=== PATIENT | female | born 1990 | race Caucasian/White ===

== ENCOUNTER 2017-12-31 09:00 | Outpatient (RCR) | payer MEDICARE, MEDICAID ==
[~2017-12-31 09:00] MED LIST: AMLO-111 PO; AZAT50TA44 PO; MELA5TAB6 PO; METO-734 PO; OMEP40CA48 PO; ONDA4TAB97 PO; SEVE800T16 PO; TOPI-121 PO
[2017-12-31 09:26] LABS: PLATELET COUNT, AUTOMATED 382 K/uL (150-450)
[2017-12-31] MEDS ORDERED: diphenhydrAMINE 25 MG CAP PO PRN (09:35)
[2017-12-31] MEDS ORDERED: ONDANSETRON 4 MG TAB PO PRN (09:40)
[2017-12-31] MEDS ORDERED: ACETAMINOPHEN 325 MG TAB PO PRN (09:40)
[2017-12-31] MEDS ORDERED: methylPREDNIS SUCC 125 MG/2ML IVP PRN (09:40)
[2017-12-31 10:16] VITALS: BP 121/100
[2017-12-31] MEDS ORDERED: NS 0.9% IV ONE (11:00)
[2017-12-31] MEDS ORDERED: RITUXIMAB IV ONE (11:00)
[2017-12-31 15:39] VITALS: BP 128/91
[2018-01-02] MEDS ORDERED: ALB0.5 IH (14:13)
== END 2018-02-06 09:34 | disposition home or self-care (01) ==
LOC: SPU 09:00
PROVIDERS: ATTEND Internal Medicine Rheumatology
DX: N18.6 End stage renal disease (principal); Z99.2 Dependence on renal dialysis
CPT/HCPCS: 85025; 96375; 96413; 96415; A9270; J2930; J7050; J9310; Q0162; Q0163; 82040; 82247; 82310; 82374; 82435; 82565; 82947; 84075; 84132; 84155; 84295; 84450; 84460; 84520; S0119

== ENCOUNTER → 2018-01-02 | Outpatient (CLI) | payer MEDICARE, MEDICAID ==
[~2018-01-02] MED LIST changes: +ALB0.5 IH; -AMLO-111 PO; +AMLO-96 PO
--- NOTE | 2018-01-02 15:10 | RADIOLOGY IMAGING REPORT ---
[place] [facility] [place] NAME: Celina Ramos : 1990 MR: [id number] V: [id number] EXAM DATE: ORDERING PHYSICIAN: SANDY ART TECHNOLOGIST: Location: [facility] - [place] Patient: Celina Ramos : 1990 Visit/Account:[id number] Date of Sevice: 01/02/2018 Chest with lateral, 2 views. HISTORY: Cough for one year. COMPARISON: None. Minimal streaky densities are present in the right lung base. The heart and mediastinum are unremarka ble. Pulmonary vessels are unremarkable. The lungs are otherwise clear. The pleural surfaces are un remarkable. No pneumothorax. A mild pectus excavatum is present. Small lucencies are present inferior to the right and left hemidiaphragm possibly representing gas within bowel loops. IMPRESSION: Mild right basilar subsegmental atelectasis or pleural-parenchymal scars. Lucencies in the upper abdomen possibly representing gas within bowel loops. A small pneumoperitoneum is not excluded. Clinical correlation is suggested. The patient's provider has been paged by the Imaging Physical Security Engineer at 3:15 PM on 01/02/2018. Report Dictated By: Vel Frey MD at 01/02/2018 3:02 PM Report E-Signed By: Vel Frey MD at 01/02/2018 3:06 PM WSN:[id number]
== END ==
LOC: LAB 14:11
PROVIDERS: ATTEND Emergency Medicine
DX: J98.11 Atelectasis (principal); Q67.6 Pectus excavatum
CPT/HCPCS: 36415; 71046; 83880; 85379

== ENCOUNTER → 2018-01-03 | Outpatient (CLI) | payer MEDICARE, MEDICAID ==
--- NOTE | 2018-01-03 14:41 | RADIOLOGY IMAGING REPORT ---
FACILITY: [facility] - [place] PATIENT NAME: Celina Ramos : 1990 MR: [id number] V: [id number] EXAM DATE: ORDERING PHYSICIAN: SANDY ART TECHNOLOGIST: Location: [facility] [place] Patient: Celina Ramos : 1990 Visit/Account:[id number] Date of Sevice: 01/03/2018 DEXA Scan HISTORY: History of recent steroid use. COMPARISON: None. LUMBAR SPINE: The bone mineral density (BMD) measured from L1-L4 correlates with a Z-score of -0.3 and a T-score of +0.1 which is normal as defined by the World Health Organization. The corresponding risk of fractur e in the lumbar spine is not increased compared with a young adult reference population. HIP: Bone mineral density (BMD) measured in the left total hip region correlates with a Z-score of -2.2 an d a T-score of -1.9 which is compatible with osteopenia as defined by the World Health Organization. The corresponding risk of fracture in the hip is increased 3-4 times compared with a young adult ref erence population. Bone mineral density (BMD) measured in the left Femoral Neck region measures 0.864 g/cm2. IMPRESSION: 1. Lumbar spine: Normal. 2. Left Total Hip: Compatible with osteopenia. 3. Left Femoral Neck: Bone Mineral Density is 0.864 g/cm2 The next DEXA scan of this patient should include the following sites: L1-L4 and left hip. FRAX? WHO Fracture Risk Assessment Tool link: <http://www.shef.ac.uk/FRAX/tool.jsp?locationValue=9> PLEASE NOTE: 1) The World Health Organization defines low BMD as follows: T-score Normal > -1 Osteopenia < -1 and > -2.5 Osteoporosis < -2.5 without fractures Established osteoporosis < -2.5 with fractures 2) In general, you may wish to consider: Diagnosis Treatment Follow-up DEXA Normal BMD Prevention 2-3 years Osteopenia Prevention/therapy 1-2 years Osteoporosis Therapy Yearly 3) Fracture risk estimated from the T-score is more accurate for vertebral fractures (often spontane ous) than for hip fractures. Report Dictated By: Harika Ramos MD at 01/03/2018 2:36 PM Report E-Signed By: Harika Ramos MD at 01/03/2018 2:37 PM WSN:[email or web address]
== END ==
LOC: RAD 13:47
PROVIDERS: ATTEND Emergency Medicine
DX: M85.88 Other specified disorders of bone density and structure, other site (principal)
CPT/HCPCS: 77080

== ENCOUNTER → 2018-01-08 | Outpatient (CLI) | payer MEDICARE, MEDICAID | LOC: RESP 02:48 | PROVIDERS: ATTEND Emergency Medicine | DX: R05 Cough (principal); R09.02 Hypoxemia | CPT/HCPCS: 94060; 94726; 94729 ==

== ENCOUNTER → 2018-03-05 | Outpatient (CLI) | payer MEDICARE, MEDICAID ==
[~2018-03-05] MED LIST changes: +AMLO-111 PO; +AMLO-113 PO; -AMLO-96 PO
--- NOTE | 2018-03-05 20:22 | RADIOLOGY IMAGING REPORT ---
FACILITY: [facility] - [place] PATIENT NAME: Celina Ramos : 1990 MR: [id number] V: [id number] EXAM DATE: [id number] ORDERING PHYSICIAN: IZABELLA MYERS TECHNOLOGIST: Location: [facility] Patient: Celina Ramos : 1990 Visit/Account:[id number] Date of Sevice: 03/05/2018 EXAMINATION: Chest 2 Views HISTORY: Chest pain. Cough for one year. COMPARISON: 01/02/2018. FINDINGS: The lungs are clear. No focal consolidation or pleural effusion. No pneumothorax. Normal cardiomediastinal silhouette, with normal heart size and pulmonary vascularity. There is a small amount of free intraperitoneal air under the bilateral hemidiaphragms, similar to th e prior exam. Patient is reportedly on peritoneal dialysis. No acute osseous findings. Visualized osseous structures appear intact. Mild pectus excavatum. IMPRESSION: 1. No acute findings in the chest. The lungs are clear. 2. Small amount of free intraperitoneal air under the diaphragm, similar to the prior exam. The patie nt is on peritoneal dialysis. Findings were discussed with IZABELLA MYERS at 03/05/2018 8:16 PM. Report Dictated By: Pravin Ortega MD at 03/05/2018 7:22 PM Report E-Signed By: Pravin Ortega MD at 03/05/2018 8:18 PM WSN:[id number]
== END ==
LOC: RAD 16:17
PROVIDERS: ATTEND Internal Medicine Critical Care Medicine
DX: R07.9 Chest pain, unspecified (principal)
CPT/HCPCS: 71046

== ENCOUNTER → 2018-03-22 | Outpatient (CLI) | payer MEDICARE, MEDICAID ==
[2018-03-22 13:19] LABS: PLATELET COUNT, AUTOMATED 294 K/uL (150-450)
== END ==
LOC: LAB 13:02
PROVIDERS: ATTEND Emergency Medicine
DX: J18.9 Pneumonia, unspecified organism (principal)
CPT/HCPCS: 36415; 85025; 86140

== ENCOUNTER 2018-03-29 10:00 | Outpatient (RCR) | payer MEDICARE, MEDICAID ==
[2018-03-22 13:42] VITALS: BP 140/100
[2018-03-22] MEDS: NS 0.9% IVPB PRN (13:52)
[2018-03-22] MEDS: ERTAPENEM IVPB PRN (13:52)
[2018-03-23] MEDS: ERTAPENEM IVPB PRN (10:28)
[2018-03-23] MEDS: NS 0.9% IVPB PRN (10:28)
[2018-03-23] MEDS: NS(*) 0.9% 100 ML BAG 100 ML IVPB PRN (10:28)
[2018-03-23] MEDS: LIDOCAINE/SOD BICARB 8.4% SYR ID PRN (10:29)
[2018-03-23 10:32] VITALS: BP 119/90
[2018-03-24] MEDS: ERTAPENEM IVPB PRN (10:15)
[2018-03-24] MEDS: NS 0.9% IVPB PRN (10:15)
[2018-03-24 10:16] VITALS: BP 129/100
[2018-03-25 10:58] VITALS: BP 118/93
[2018-03-25] MEDS: ERTAPENEM IVPB PRN (11:05)
[2018-03-25] MEDS: LIDOCAINE/SOD BICARB 8.4% SYR ID PRN (11:05)
[2018-03-25] MEDS: NS 0.9% IVPB PRN (11:05)
[2018-03-26] MEDS: NS(*) 0.9% 100 ML BAG 100 ML IVPB PRN (10:39)
[2018-03-26 10:40] VITALS: BP 123/87
[2018-03-26] MEDS: NS 0.9% IVPB PRN (10:55)
[2018-03-26] MEDS: ERTAPENEM IVPB PRN (10:55)
[2018-03-27 09:49] VITALS: BP 123/90
[2018-03-27] MEDS: NS 0.9% IVPB PRN (10:00)
[2018-03-27] MEDS: ERTAPENEM IVPB PRN (10:00)
[2018-03-28 09:57] VITALS: BP 134/110
[2018-03-28] MEDS: ERTAPENEM IVPB PRN (10:19)
[2018-03-28] MEDS: NS 0.9% IVPB PRN (10:19)
[2018-03-28] MEDS: NS(*) 0.9% 100 ML BAG 100 ML IVPB PRN (10:20)
[~2018-03-29 10:00] MED LIST changes: +DEXTROSE 5%(*) 100 ML BAG 100 ML IVPB PRN; +ERTAPENEM(*) 1 GM VIAL 1 GM in NS(*) 0.9% 100 ML ADDVANT BAG 100 ML IVPB PRN
[2018-03-29] MEDS: ERTAPENEM IVPB PRN (10:11)
[2018-03-29] MEDS: NS 0.9% IVPB PRN (10:11)
[2018-03-29] MEDS: NS(*) 0.9% 100 ML BAG 100 ML IVPB PRN (10:11)
[2018-03-29 10:14] VITALS: BP 112/98
[2018-03-30] MEDS: ERTAPENEM IVPB PRN (09:40)
[2018-03-30] MEDS: NS 0.9% IVPB PRN (09:40)
[2018-03-30] MEDS: NS(*) 0.9% 100 ML BAG 100 ML IVPB PRN (09:44)
[2018-03-30 09:51] VITALS: BP 125/99
[2018-03-31] MEDS: ERTAPENEM IVPB PRN (09:41)
[2018-03-31] MEDS: NS(*) 0.9% 100 ML BAG 100 ML IVPB PRN (09:41)
[2018-03-31] MEDS: NS 0.9% IVPB PRN (09:41)
[2018-03-31 09:43] VITALS: BP 117/95
[2018-04-08] MEDS ORDERED: PRED20TA6 PO (16:24)
[2018-04-08] MEDS ORDERED: IPRA4AER IH (16:24)
[2018-04-08] MEDS ORDERED: AMOX-559 PO (16:41)
== END 2018-04-10 12:12 | disposition home or self-care (01) ==
LOC: SPU 10:00
PROVIDERS: ATTEND Emergency Medicine
DX: J18.9 Pneumonia, unspecified organism (principal)
CPT/HCPCS: 36415; 85025; 86140; 96365; J1335; J7050

== ENCOUNTER → 2018-04-02 | Outpatient (CLI) | payer MEDICARE, MEDICAID ==
[~2018-04-02] MED LIST changes: -DEXTROSE 5%(*) 100 ML BAG 100 ML IVPB PRN; -ERTAPENEM(*) 1 GM VIAL 1 GM in NS(*) 0.9% 100 ML ADDVANT BAG 100 ML IVPB PRN
== END ==
LOC: LAB 17:03
PROVIDERS: ATTEND Emergency Medicine
DX: J18.9 Pneumonia, unspecified organism (principal)
CPT/HCPCS: 36415; 86140

== ENCOUNTER → 2018-04-08 | Outpatient (CLI) | payer MEDICARE, MEDICAID ==
[~2018-04-08] MED LIST changes: +AMOX-559 PO; +IPRA4AER IH; +PRED20TA6 PO
--- NOTE | 2018-04-08 17:48 | RADIOLOGY IMAGING REPORT ---
FACILITY: [facility] - [place] PATIENT NAME: Celina Ramos : 1990 MR: [id number] V: [id number] EXAM DATE: ORDERING PHYSICIAN: SANDY ART TECHNOLOGIST: Location: [facility] - [place] Patient: Celina Ramos : 1990 Visit/Account:[id number] Date of Sevice: 04/08/2018 Exam type: CHEST PA AND LAT History: Pneumonia follow up. ( X ray done out of town on 03/21) Comparison: March 05, 2018. Findings: The lungs appear free of acute effusions, infiltrates or edema. Cardiac silhouette is normal in size . Small amount of free intra- peritoneal air is noted similar to the prior study. By history the pa tient is on peroneal dialysis. There Appears to be a pectus excavatum deformity the anterior chest w all IMPRESSION: 1. No acute cardiopulmonary process seen Report Dictated By: Trista Jon MD at 04/08/2018 5:42 PM Report E-Signed By: Trista Jon MD at 04/08/2018 5:44 PM WSN:[email or web address]
== END ==
LOC: RAD 16:48
PROVIDERS: ATTEND Emergency Medicine
DX: J18.9 Pneumonia, unspecified organism (principal)
CPT/HCPCS: 71046

== ENCOUNTER → 2018-05-20 | Outpatient (CLI) | payer MEDICARE, MEDICAID | LOC: LAB 10:21 | PROVIDERS: ATTEND Emergency Medicine | DX: J40 Bronchitis, not specified as acute or chronic (principal); B34.9 Viral infection, unspecified | CPT/HCPCS: 87633 ==

== ENCOUNTER 2018-06-10 12:16 | Outpatient (RCR) | payer MEDICARE, MEDICAID ==
[~2018-06-10 12:16] MED LIST changes: -AMLO-111 PO; -AMLO-113 PO; +AMLO-125 PO; +AMLO-127 PO
[2018-06-12 08:28] VITALS: BP 127/90
[2018-06-12 09:02] LABS: PLATELET COUNT, AUTOMATED 312 K/uL (150-450)
[2018-06-12] MEDS ORDERED: methylPREDNIS SUCC 125 MG/2ML IVP PRN (09:15)
[2018-06-12] MEDS ORDERED: ONDANSETRON 4 MG TAB PO PRN (09:15)
[2018-06-12] MEDS ORDERED: diphenhydrAMINE 50 MG/ML VIAL IVP PRN (09:15)
[2018-06-12] MEDS ORDERED: ACETAMINOPHEN 325 MG TAB PO PRN (09:15)
[2018-06-12] MEDS ORDERED: RITUXIMAB IV ONE (10:00)
[2018-06-12] MEDS ORDERED: NS 0.9% IV ONE (10:00)
[2018-06-12] MEDS ORDERED: ALTEPLASE RECOMB 2 MG VIAL IVP PRN (11:00)
[2018-06-12] MEDS ORDERED: WATER FOR INJ,STERILE 20 ML IVP PRN (11:00)
[2018-06-12] MEDS ORDERED: DEXTROSE 5%(*) 100 ML BAG 100 ML IVPB PRN (11:00)
[2018-06-12] MEDS ORDERED: NS(*) 0.9% 100 ML BAG 100 ML IVPB PRN (11:00)
[2018-06-12] MEDS ORDERED: NS(*) 0.9% 500 ML BAG 500 ML IV PRN (11:00)
[2018-06-12 12:07] VITALS: BP 117/88
[2018-06-28] MEDS ORDERED: AZIT-1 PO (03:58)
== END 2018-07-01 12:19 | disposition home or self-care (01) ==
LOC: SPU 12:16
PROVIDERS: ATTEND Internal Medicine Rheumatology
DX: M31.7 Microscopic polyangiitis (principal)
CPT/HCPCS: 85025; 96375; 96413; 96415; A9270; J1200; J2930; J7040; J7050; J9312; Q0162; 82040; 82247; 82310; 82374; 82435; 82565; 82947; 84075; 84132; 84155; 84295; 84450; 84460; 84520; S0119

== ENCOUNTER 2018-06-10 15:21 | Outpatient (RCR) | payer MEDICARE, MEDICAID ==
[2018-06-28] MEDS ORDERED: AZIT-1 PO (03:58)
== END 2018-07-01 12:19 | disposition home or self-care (01) ==
LOC: SPU 15:21
PROVIDERS: ATTEND Internal Medicine Rheumatology
DX: N18.6 End stage renal disease (principal); Z99.2 Dependence on renal dialysis

== ENCOUNTER 2018-06-16 16:10 | Emergency (ER) | payer MEDICARE, MEDICAID ==
[2018-06-16] MEDS ORDERED: NS(*) 0.9% 1000 ML BAG 1,000 ML IV ONE (16:20)
[2018-06-16] MEDS ORDERED: PROMETHAZINE 25 MG/ML 1 ML AMP IVP ONE (16:20)
[2018-06-16] MEDS ORDERED: diphenhydrAMINE 50 MG/ML VIAL IVP ONE ×5 (16:20→22:20)
[2018-06-16] MEDS ORDERED: HYDROMORPHONE HCL 1 MG/ML SYRINGE IVP ONE ×4 (16:20→22:20)
--- NOTE | 2018-06-16 16:23 | ER Report ---
History and Physical Time Seen By MD: 16:22 Hx. of Stated Complaint: N/V/D, ABD PAIN (GE CRESPO DO) HPI/ROS CHIEF COMPLAINT: n/v/d with abd pain HISTORY OF PRESENT ILLNESS: PT started last night with vomiting and diarrhea. Pt took phenergan which seemed to help. Woke up at 10 am and felt okay but slowly a round noon symptoms returned. +n/v/d with severe abdominal cramping. PT is on peritoneal dialysis for the last 7 years. PT states her dialysis went as usual; fluid was clear. N0 fevers. No sick contacts. Pt has hx of colitis in the past. Pt using heating pad on her abdomen which is helping her cramping. Pt states that she tried zofran this am but did not help. Pt states when she has this type of pain she needs dilaudid but she needs benadryl and ativan with it. REVIEW OF SYSTEMS: Constitutional: No fever, no chills. Eyes: No discharge. ENT: No sore throat. Cardiovascular: No chest pain, no palpitations. Respiratory: No cough, no shortness of breath. Gastrointestinal: +abdominal pain, +nausea, + vomiting, + diarrhea Genitourinary: No hematuria. Musculoskeletal: No back pain. Skin: No rashes. Neurological: No headache. (GE CRESPO DO) Allergies: Coded Allergies: fentanyl (Unverified Allergy, Severe, SEIZURES, 06/16/18) vancomycin (Unverified Allergy, Unknown, ORAL SWELLING, 06/16/18) levofloxacin (Verified Adverse Reaction, Intermediate, Severe arthralgia, 06/16/18) meperidine (Unverified Adverse Reaction, Unknown, HALLUCINATIONS, 06/16/18) morphine (Unverified Adverse Reaction, Unknown, ITCHING, 06/16/18) Home Meds Reported Medications Ipratropium/Albuterol Sulfate (COMBIVENT RESPIMAT INHAL SPRAY) 4 Gm Aer.w.adap, 1 EACH IH QID Use prior to exertion 04/08/18 Topiramate (TOPAMAX) 100 Mg Tablet, 1.5 TAB PO BID 12/28/17 Ondansetron Hcl (ZOFRAN) 4 Mg Tablet, 2 TAB PO PRN, TAB 12/28/17 Melatonin (MELATONIN) 5 Mg Tablet, 1 TAB PO QHS 12/28/17 Sevelamer Carbonate (RENVELA) 800 Mg Tablet, 1 TAB PO WITH MEALS 12/28/17 Omeprazole (OMEPRAZOLE) 40 Mg Capsule.dr, 1 CAP PO BID, CAP 12/28/17 Azathioprine (IMURAN) 50 Mg Tablet, 3 TAB PO QDAY 12/28/17 Past Medical/Surgical History pmhx: htn, pericarditis, gerd, pneumonia, gastroparesis, colitis, autoimmune ds, ovarian cyst 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, bunionectomy, sinus surgery (GE CRESPO DO) Reviewed Nurses Notes: Yes Old Medical Records Reviewed: Yes (GE CRESPO DO) Hx Smoking: No Smoking Status: Never Smoker (GE CRESPO DO) Constitutional Vital Sign - Last 24 Hours 06/16/18 06/16/18 06/16/18 06/16/18 16:14 18:30 19:00 19:05 Temp 97.6 Pulse 106 90 86 Resp 20 B/P (MAP) 117/88 122/91 (101) 127/87 (100) Pulse Ox 94 97 97 98 O2 Delivery Room Air 06/16/18 06/16/18 06/16/18 06/16/18 19:35 20:05 20:30 20:35 Pulse 99 96 93 B/P (MAP) 115/83 (94) Pulse Ox 100 85 98 (FOUZIA CISNEROS MD) Physical Exam General Appearance: The patient is alert, has no immediate need for airway protection and no signs of toxicity. Eyes: Pupils equal and round no pallor or injection ENT: no pharyngeal erythema or exudates, Mucous membranes are moist Respiratory: There are no retractions, lungs are clear to auscultation. Cardiovascular: Regular rate and rhythm. pulses are equal and symmetrical Gastrointestinal: Abdomen is soft but diffsely tender, no masses, bowel sounds normal, + guarding, no rigidity or rebound Neurological: Cranial nerves II-XII grossly intact, no sensory or motor loss Skin: Warm and dry, no rashes. Musculoskeletal: Neck is supple non tender, no vertebral tenderness Extremities are non tender, nonswollen and have full range of motion. DIFFERENTIAL DIAGNOSIS: After history and physical exam differential diagnosis was considered for colitis, psbo, sbo, peritonitis, (GE CRESPO DO) Medical Decision Making Data Points Result Diagram: 06/16/18201506/16/18 1625 Laboratory Hematology Test 06/16/18 15:25 06/16/18 16:25 06/16/18 18:00 06/16/18 20:16 Phosphorus Level 3.4 mg/dl (2.5-4.5) Magnesium Level 1.2 mg/dl (1.7-2.2) Sodium Level 134 mmol/L (137-145) Potassium Level 4.0 mmol/L (3.5-5.0) Chloride Level 95 mmol/L (98-107) Carbon Dioxide Level 30 mmol/L (22-31) Blood Urea Nitrogen 40 mg/dl (7-18) Creatinine 11.10 mg/dl (0.52-1.04) Glomerular Filtration Rate Calc 4.1 Random Glucose 96 mg/dl (75-110) Calcium Level 8.6 mg/dl (8.4-10.2) Total Bilirubin 0.6 mg/dl (0.2-1.3) Aspartate Amino Transf (AST/SGOT) 11 U/L (0-35) Alanine Aminotransferase (ALT/SGPT) 10 U/L (0-56) Alkaline Phosphatase 52 U/L (0-126) Total Protein 6.1 g/dl (6.3-8.2) Albumin 3.4 g/dl (3.5-5.0) Lipase 143 U/L (23-300) Human Chorionic Gonadotropin, Qual Negative (NEGATIVE) Red Blood Count 2.37 M/uL (4.17-5.56) Mean Corpuscular Volume 92.7 fL (80.0-96.0) Mean Corpuscular Hemoglobin 31.8 pg (26.0-33.0) Mean Corpuscular Hemoglobin Concent 34.4 g/dL (32.0-36.0) Red Cell Distribution Width 19.3 % (11.5-14.5) Mean Platelet Volume 7.8 fL (7.2-11.1) Neutrophils (%) (Auto) 81.7 % (39.4-72.5) Lymphocytes (%) (Auto) 6.6 % (17.6-49.6) Monocytes (%) (Auto) 10.4 % (4.1-12.4) Eosinophils (%) (Auto) 0.5 % (0.4-6.7) Basophils (%) (Auto) 0.8 % (0.3-1.4) Nucleated RBC Relative Count (auto) 0.1 /100WBC Neutrophils # (Auto) 4.2 K/uL (2.0-7.4) Lymphocytes # (Auto) 0.3 K/uL (1.3-3.6) Monocytes # (Auto) 0.5 K/uL (0.3-1.0) Eosinophils # (Auto) 0.0 K/uL (0.0-0.5) Basophils # (Auto) 0.0 K/uL (0.0-0.1) Nucleated RBC Absolute Count (auto) 0.00 K/uL Peripheral Blood Smear Yes Y/N Chemistry Test 06/16/18 15:25 06/16/18 16:25 06/16/18 18:00 06/16/18 20:16 Phosphorus Level 3.4 mg/dl (2.5-4.5) Magnesium Level 1.2 mg/dl (1.7-2.2) Glomerular Filtration Rate Calc 4.1 Calcium Level 8.6 mg/dl (8.4-10.2) Total Bilirubin 0.6 mg/dl (0.2-1.3) Aspartate Amino Transf (AST/SGOT) 11 U/L (0-35) Alanine Aminotransferase (ALT/SGPT) 10 U/L (0-56) Alkaline Phosphatase 52 U/L (0-126) Total Protein 6.1 g/dl (6.3-8.2) Albumin 3.4 g/dl (3.5-5.0) Lipase 143 U/L (23-300) Human Chorionic Gonadotropin, Qual Negative (NEGATIVE) White Blood Count 5.2 k/uL (4.5-11.0) Red Blood Count 2.37 M/uL (4.17-5.56) Hemoglobin 7.5 g/dL (12.0-16.0) Hematocrit 22.0 % (34.0-47.0) Mean Corpuscular Volume 92.7 fL (80.0-96.0) Mean Corpuscular Hemoglobin 31.8 pg (26.0-33.0) Mean Corpuscular Hemoglobin Concent 34.4 g/dL (32.0-36.0) Red Cell Distribution Width 19.3 % (11.5-14.5) Platelet Count 316 K/uL (150-450) Mean Platelet Volume 7.8 fL (7.2-11.1) Neutrophils (%) (Auto) 81.7 % (39.4-72.5) Lymphocytes (%) (Auto) 6.6 % (17.6-49.6) Monocytes (%) (Auto) 10.4 % (4.1-12.4) Eosinophils (%) (Auto) 0.5 % (0.4-6.7) Basophils (%) (Auto) 0.8 % (0.3-1.4) Nucleated RBC Relative Count (auto) 0.1 /100WBC Neutrophils # (Auto) 4.2 K/uL (2.0-7.4) Lymphocytes # (Auto) 0.3 K/uL (1.3-3.6) Monocytes # (Auto) 0.5 K/uL (0.3-1.0) Eosinophils # (Auto) 0.0 K/uL (0.0-0.5) Basophils # (Auto) 0.0 K/uL (0.0-0.1) Nucleated RBC Absolute Count (auto) 0.00 K/uL Peripheral Blood Smear Yes Y/N (FOUZIA CISNEROS MD) Microbiology Microbiology Date/Time Source Procedure Growth Status 06/16/18 19:08 Peritoneal Fluid Gram Stain - Final Resulted 06/16/18 19:08 Peritoneal Fluid Body Fluid Culture Pending Resulted 06/16/18 18:00 Cervical Wet Prep - Final Complete (FOUZIA CISNEROS MD) EKG/Imaging Monitor Interpretation: Normal Sinus Rhythm Imaging 12 lead EKG: Rhythm: normal sinus rhythm [place]: normal QRS: normal ST segments: normal QTC 462; prolonged QT, low voltage (FOUZIA CISNEROS MD) ED Course/Re-evaluation Clinical Indication for ER IV: IV Access ED Course will check labs. Will start with benadryl, dilaudid and phenergan. Pt requesting ativan at the same time however I am concerned with sedation so will monitor and then add if needed. 06/16/2018 5:21:35 pm Pts labs are back and similar to prior labs taken on 06/12/2018 with her infusion. Pt reevaluated states the abd pain has localized to below the belly button to pelvis region. awaiting ct results. 06/16/2018 5:49:[address] limited due to pts peritoneal fluid and lack of contrast. Reviewed results with pt who feels that she had an ovarian cyst in the past with similar symptoms. Spoke with radioloigst, Dr. Villeda, who staes the umbilical hernia fluid and air is peritoneal fluid and not bowel. Pt would like US when discussed the CT report. Pt has had no vomiting or stools in the ED PELVIC: No cmt, + left and R adnexal tenderness; +mild white discharge. wet prep and gc/chlamydia cultures obtained and sent to lab. (GE CRESPO DO) ED Course I took over care of patient from Dr. Crespo; pelvic ultrasound and peritoneal cultures pending. On my evaluation patient again develops worsening pain that is pelvic and bilateral and of note was significant worse in the area of the hemorrhagic cyst that is found on pelvic ultrasound. I will continue to try to control pain reassess CBC to evaluate for ongoing bleeding from the hemorrhagic cyst and reevaluate. Rpt cbc shows minimal drop; unable to control pain; maximum ttp found both suprapubic and periumbilical though without incarcerated hernia (ct demonstrates umbilical hernia defect). I considered ongoing hemorrhage from ovarian cyst; at this point, pt remains hd stable and given rpt cbc I doubt this is the case; though recommend continued serial exams to r/o progressing findings. I administered 500mg flagyl for BV as found. Considered peritonitis though pt states dialysate was clear and nl this am; peritoneal gm stain/cx pending at [facility]; will fax when resuled. Decision to Disposition Date: Jun 16, 2018 Decision to Disposition Time: 21:10 (FOUZIA CISNEROS MD) Depart Departure Latest Vital Signs Vital Signs Date Time Temp Pulse Resp B/P (MAP) Pulse Ox O2 Delivery O2 Flow Rate FiO2 06/16/18 20:35 93 98 06/16/18 20:30 115/83 (94) 06/16/18 16:14 97.6 20 Room Air (FOUZIA CISNEROS MD) Impression: Primary Impression: Hemorrhagic ovarian cyst Additional Impressions: Intractable abdominal pain Bacterial vaginosis Condition: Condition Unchanged Disposition: XFER TO [facility] ([facility]) Referrals: SANDY ART MD (PCP) 5 Days Problem Qualifiers GE CRESPO DO Jun 16, 2018 16:23 FOUZIA CISNEROS MD Jun 16, 2018 20:07
[2018-06-16 16:31] LABS: PLATELET COUNT, AUTOMATED 343 K/uL (150-450)
[2018-06-16] MEDS ORDERED: LORazepam 2 MG/ML VIAL IVP ONE ×3 (16:50→22:20)
--- NOTE | 2018-06-16 17:38 | RADIOLOGY IMAGING REPORT ---
[place]AC[place] [facility] [place] NAME: Celina Ramos : 1990 MR: [id number] V: [id number] EXAM DATE: ORDERING PHYSICIAN: GE CRESPO TECHNOLOGIST: [facility] Patient: Celina Ramos : 1990 Visit/Account:[id number] Date of Sevice: 06/16/2018 EXAMINATION: CT abdomen without IV contrast CT pelvis without IV contrast HISTORY: Nausea. Vomiting. Diffuse pain. On peritoneal dialysis. COMPARISON: None. TECHNIQUE: Axial images were taken through the abdomen and pelvis without intravenous contrast. Sag ittal and coronal reformatted images are also submitted. One of the following dose optimization techniques was utilized in the performance of this exam: Autom ated exposure control; adjustment of the mA and/or kV according to the patient's size; or use of an i terative reconstruction technique. Specific details can be referenced in the facility's radiology C T exam operational policy. FINDINGS: Please note that without intravenous contrast, sensitivity to detection of parenchymal disease is gilliland ited. Liver/biliary: Negative. Pancreas: Negative. Spleen: Borderline enlargement of the spleen which measures 13.9 cm in length. Adrenal glands: Negative. Kidneys: The kidneys are severely atrophic. Pelvic structures: A 3.3 cm septated cyst or 2 adjacent cysts in the left ovary. There is an IUD w ithin the endometrial cavity. The urinary bladder is nondistended. Bowel: The bowel is normal caliber without obvious focal wall thickening. The appendix is not well de lineated. Peritoneum/retroperitoneum/mesenteries: Moderate volume of free fluid in the abdomen and pelvis. Smal l volume of intraperitoneal free air. Peritoneal dialysis catheter terminates in the right anterior p chasity. Vessels: Negative. Musculoskeletal/body wall: Small umbilical hernia containing fluid and air. Disc bulges at L3-4, L4-5 , and L5-S1 which narrows the thecal sac and neural foramina. Lymph node assessment: Negative. Lower chest: Subsegmental atelectasis at the lung bases there is mild motion artifact at the lung bas es. Question tree-in-bud opacities in the right lower lobe. IMPRESSION: There is a moderate volume of free fluid in the abdomen and pelvis and a small volume of intraperiton eal free air. This is probably related to peritoneal dialysis. There is a 3.3 cm septated cyst or 2 adjacent cysts in the left ovary. Pelvic ultrasound could be obt ained for further evaluation of this if clinically indicated. The kidneys are severely atrophic. Borderline splenomegaly. Small umbilical hernia containing fluid and air. Possible tree-in-bud opacities in the right lower lobe which can be seen with infectious bronchioliti s or aspiration. Evaluation of the lung bases is limited by motion artifact. Report Dictated By: Camron Villeda MD at 06/16/2018 5:17 PM Report E-Signed By: Camron Villeda MD at 06/16/2018 5:34 PM WSN:[id number]
--- NOTE | 2018-06-16 19:19 | RADIOLOGY IMAGING REPORT ---
FACILITY: [facility] [place] PATIENT NAME: Celina Ramos : 1990 MR: [id number] V: [id number] EXAM DATE: ORDERING PHYSICIAN: GE CRESPO TECHNOLOGIST: Location: [facility] - [place] Patient: Celina Ramos : 1990 Visit/Account:[id number] Date of Sevice: 06/16/2018 EXAMINATION: Transvaginal pelvic ultrasound with duplex Doppler evaluation HISTORY: Pelvic pain. Mirena IUD since 2010. COMPARISON: None. FINDINGS: Uterus: Negative; 7.4 cm length x 4 cm transverse x 3.7 cm AP. Myometrium: Negative. Endometrium: IUD within the endometrial cavity. Endometrium was otherwise unremarkable and measures 7 mm in thickness. Cervix: Negative. Ovaries: Right ovary 3.2 x 2.7 x 2.8 cm, left ovary 4.1 x 3.7 x 4 cm. Adjacent cysts in the left ova ry measuring 2.1 x 1.9 x 1.5 cm and 2.5 x 2.5 x 1.6 cm. Cyst with debris in the right ovary measuring 1.7 x 1.7 x 1.4 cm. Patient was extremely tender over the right ovary. Blood flow is documented in each ovary by Doppler ultrasound. Adnexa: Negative. Free pelvic fluid: Large volume of free fluid in the pelvis. IMPRESSION: Cystic lesion suggestive of a hemorrhagic cyst in the right ovary. Follow-up pelvic ultrasound is rec ommended in 6-12 weeks in a woman of reproductive age. Optimally, the exam would take place in the fo llicular phase, days 3-10, of the menstrual cycle. The patient was noted to be extremely tender over the right ovary. No evidence of ovarian torsion. There are 2 simple appearing cyst in the left ovary measuring 2.1 cm and 2.5 cm. Report Dictated By: Camron Villeda MD at 06/16/2018 7:00 PM Report E-Signed By: Camron Villeda MD at 06/16/2018 7:15 PM WSN:[id number]
--- NOTE | 2018-06-16 19:57 | EKG ---
FACILITY: [facility] PATIENT NAME: TEODORA SIMON : [id number] MR: [id number] V: [id number] EXAM DATE: ORDERING PHYSICIAN: FOUZIA CISNEROS TECHNOLOGIST: DESTINY Test Reason : ELECTROLYTE ABNORMALITY Blood Pressure : / mmHG Vent. Rate : 094 BPM Atrial Rate : 094 BPM P-R Int : 134 ms QRS Dur : 078 ms QT Int : 370 ms P-R-T Axes : 023 -10 023 degrees QTc Int : 462 ms Normal sinus rhythm Low voltage QRS Prolonged QT Abnormal ECG No previous ECGs available Confirmed by David Boykin ([id number]) on 06/16/2018 10:46:21 PM Referred By: Heena CISNEROS Confirmed By:David Torres
[2018-06-16 20:25] LABS: PLATELET COUNT, AUTOMATED 316 K/uL (150-450)
[2018-06-16] MEDS ORDERED: metroNIDAZOLE* 500MG/100ML BAG 100 ML IVPB ONE (21:15)
[2018-06-16 22:00] VITALS: BP 120/83
== END 2018-06-16 22:30 | disposition short-term general hospital (02) ==
LOC: ER 16:15
DX: N83.202 Unspecified ovarian cyst, left side (principal); R10.9 Unspecified abdominal pain; N76.0 Acute vaginitis
CPT/HCPCS: 36415; 74176; 76830; 83690; 83735; 84100; 84703; 85025; 87071; 87205; 87210; 87491; 87591; 93005; 96365; 96375; 96376; 99285; J1170; J1200; J2060; J2550; J3490; 82040; 82247; 82310; 82374; 82435; 82565; 82947; 84075; 84132; 84155; 84295; 84450; 84460; 84520

== ENCOUNTER → 2018-06-16 | Outpatient (CLI) | payer MEDICARE, MEDICAID | LOC: AMB 22:08 | PROVIDERS: ATTEND Nurse Practitioner | DX: N83.202 Unspecified ovarian cyst, left side (principal); R10.9 Unspecified abdominal pain | CPT/HCPCS: A0425; A0426 ==

== ENCOUNTER → 2018-06-27 | Outpatient (CLI) | payer OTHER, MEDICARE, MEDICAID ==
[~2018-06-27] MED LIST changes: +AZIT-1 PO
== END ==
LOC: LAB 16:22
PROVIDERS: ATTEND Internal Medicine
DX: K65.9 Peritonitis, unspecified (principal)
CPT/HCPCS: 36415; 80202

== ENCOUNTER 2018-06-28 01:33 | Emergency (ER) | payer MEDICARE, MEDICAID ==
[~2018-06-28 01:33] MED LIST changes: -AZIT-1 PO
--- NOTE | 2018-06-28 01:38 | ER Report ---
History and Physical Time Seen By MD: 01:38 HPI/ROS CHIEF COMPLAINT: Dyspnea HISTORY OF PRESENT ILLNESS: Patient is a 28-year-old female who is been on peritoneal dialysis secondary to autoimmune kidney dysfunction for the last 7 years. She was currently going through a peritoneal dialysis treatment tonight but was feeling short of breath so she presents to the emergency department with complaint of dyspnea which seems to be worse laying down with exertion. Patient states that she's had a cough over the last year and a half and is being seen by pulmonology and feels that her cough is related to gastroesophageal reflux disease as well as secondary to her peritoneal dialysis. She denies any chest pain or pressure. She was recently seen in this emergency department and transferred secondary to peritonitis. She is currently undergoing vancomycin infusions. Peritoneal dialysis catheter and states that her last dialysis fluid looked clear. States since being treated her abdominal pain is improved. She is denying any fevers or chills. Patient is anuric. She denies any blood in her bowel movements. States since being on the vancomycin she's had loose stools. REVIEW OF SYSTEMS: Constitutional: No fever, no chills. Eyes: No discharge. ENT: No sore throat. Cardiovascular: No chest pain, no palpitations. Respiratory: Dyspnea on exertion; dyspnea on laying flat Gastrointestinal: No abdominal pain, no vomiting. Genitourinary: No hematuria. Musculoskeletal: No back pain. Skin: No rashes. Neurological: No headache. Allergies: Coded Allergies: fentanyl (Unverified Allergy, Severe, SEIZURES, 06/28/18) vancomycin (Unverified Allergy, Unknown, ORAL SWELLING, 06/28/18) levofloxacin (Verified Adverse Reaction, Intermediate, Severe arthralgia, 06/28/18) meperidine (Unverified Adverse Reaction, Unknown, HALLUCINATIONS, 06/28/18) morphine (Unverified Adverse Reaction, Unknown, ITCHING, 06/28/18) Home Meds Active Scripts Azithromycin (ZITHROMAX) 250 Mg Tablet, 1 TAB PO QDAY for 4 Days, #4 TAB 0 Refills Next dose on 06/29/18 Prov:FOUZIA SINGH MD 06/28/18 Reported Medications Ipratropium/Albuterol Sulfate (COMBIVENT RESPIMAT INHAL SPRAY) 4 Gm Aer.w.adap, 1 EACH IH QID Use prior to exertion 04/08/18 Topiramate (TOPAMAX) 100 Mg Tablet, 1.5 TAB PO BID 12/28/17 Ondansetron Hcl (ZOFRAN) 4 Mg Tablet, 2 TAB PO PRN, TAB 12/28/17 Melatonin (MELATONIN) 5 Mg Tablet, 1 TAB PO QHS 12/28/17 Sevelamer Carbonate (RENVELA) 800 Mg Tablet, 1 TAB PO WITH MEALS 12/28/17 Omeprazole (OMEPRAZOLE) 40 Mg Capsule.dr, 1 CAP PO BID, CAP 12/28/17 Azathioprine (IMURAN) 50 Mg Tablet, 3 TAB PO QDAY 12/28/17 Past Medical/Surgical History pmhx: htn, pericarditis, gerd, pneumonia, gastroparesis, colitis, autoimmune ds, ovarian cyst; on peritoneal dialysis 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, bunionectomy, sinus surgery Hx Smoking: No Smoking Status: Never Smoker Constitutional Vital Sign - Last 24 Hours 06/28/18 06/28/18 06/28/18 06/28/18 01:36 01:39 01:48 02:00 Temp 98.1 Pulse 93 Resp 16 B/P (MAP) 130/110 130/110 (117) 113/91 (98) Pulse Ox 96 97 O2 Delivery Room Air 06/28/18 06/28/18 06/28/18 06/28/18 02:03 02:14 02:18 02:20 Pulse 71 72 78 86 Resp 16 16 Pulse Ox 90 100 06/28/18 06/28/18 06/28/18 06/28/18 02:28 02:30 02:38 02:43 Pulse 77 B/P (MAP) 107/84 (92) 111/79 (90) Pulse Ox 86 O2 Flow Rate 2.0 06/28/18 06/28/18 06/28/18 06/28/18 02:44 02:44 02:53 02:53 Pulse 87 90 95 Resp 16 16 Pulse Ox 96 100 O2 Delivery Nasal Cannula O2 Flow Rate 2.0 06/28/18 06/28/18 06/28/18 06/28/18 03:00 03:08 03:28 03:30 Pulse 84 B/P (MAP) 111/87 (95) 95/73 (80) 114/84 (94) Pulse Ox 95 06/28/18 06/28/18 06/28/1815/19 03:38 03:43 03:58 04:00 Pulse 73 80 77 B/P (MAP) 116/90 (99) Pulse Ox 88 91 93 06/28/18 06/28/18 06/28/18 06/28/18 04:13 04:28 04:30 04:35 Pulse 80 69 70 B/P (MAP) 120/94 (103) Pulse Ox 93 96 97 06/28/18 04:50 Pulse Ox 80 Physical Exam General/Constitutional: Patient is awake, alert, nontoxic and in no acute respiratory distress. Primary rate appears normal oxygen saturation 93% to 96% on room air Head: Normocephalic and atraumatic. Eyes: Conjunctival clear, Pupils are equal and reactive to light. Extraocular muscles are intact and symmetrical. Sclera are clear and anicteric. Ears:External canals are clear. Tympanic membranes are clear with normal landmarks and light reflex. Nares: No rhinorrhea or bleeding. Turbinates are pink and moist. Oropharyngeal: Mucous membranes are moist. There is no pharyngeal erythema or exudate. There are no palatal petechiae. Uvula is midline and symmetrical. Neck: Supple, no adenopathy. Cardiovascular: Heart is regular rate and rhythm without audible murmurs, rubs or gallops. Pulmonary: Lungs are clear to auscultation bilaterally. However with forced exhalation and cough patient has audible wheeze Abdomen: Soft, nontender, no guarding or peritoneal signs. Peritoneal dialysis catheter is intact site looks clean and dry without signs of erythema. Extremities: No gross deformities, No peripheral cyanosis. Able to move all 4 extremities. Neuro: Alert and oriented X3, Skin: No rashes, skin is warm dry and well perfused. Medical Decision Making Data Points Result Diagram: 06/28/18 0216 06/28/18 0216 Laboratory Hematology Test 06/28/18 02:16 06/28/18 02:22 Red Blood Count 3.35 M/uL (4.17-5.56) Mean Corpuscular Volume 88.4 fL (80.0-96.0) Mean Corpuscular Hemoglobin 30.4 pg (26.0-33.0) Mean Corpuscular Hemoglobin Concent 34.4 g/dL (32.0-36.0) Red Cell Distribution Width 19.8 % (11.5-14.5) Mean Platelet Volume 7.4 fL (7.2-11.1) Neutrophils (%) (Auto) 50.7 % (39.4-72.5) Lymphocytes (%) (Auto) 30.5 % (17.6-49.6) Monocytes (%) (Auto) 10.4 % (4.1-12.4) Eosinophils (%) (Auto) 4.8 % (0.4-6.7) Basophils (%) (Auto) 3.6 % (0.3-1.4) Nucleated RBC Relative Count (auto) 0.1 /100WBC Neutrophils # (Auto) 1.6 K/uL (2.0-7.4) Lymphocytes # (Auto) 0.9 K/uL (1.3-3.6) Monocytes # (Auto) 0.3 K/uL (0.3-1.0) Eosinophils # (Auto) 0.1 K/uL (0.0-0.5) Basophils # (Auto) 0.1 K/uL (0.0-0.1) Nucleated RBC Absolute Count (auto) 0.00 K/uL Peripheral Blood Smear Yes Y/N D-Dimer Quantitative (PE/DVT) 1.84 ug/ml (0-0.50) Sodium Level 134 mmol/L (137-145) Potassium Level 3.4 mmol/L (3.5-5.0) Chloride Level 96 mmol/L (98-107) Carbon Dioxide Level 30 mmol/L (22-31) Blood Urea Nitrogen 33 mg/dl (7-18) Creatinine 9.70 mg/dl (0.52-1.04) Glomerular Filtration Rate Calc 4.8 Random Glucose 98 mg/dl (75-110) Calcium Level 9.1 mg/dl (8.4-10.2) Total Bilirubin 0.6 mg/dl (0.2-1.3) Aspartate Amino Transf (AST/SGOT) 22 U/L (0-35) Alanine Aminotransferase (ALT/SGPT) 9 U/L (0-56) Alkaline Phosphatase 75 U/L (0-126) Troponin I < 0.012 ng/ml B-Type Natriuretic Peptide 90 pg/ml (0-100) Total Protein 6.5 g/dl (6.3-8.2) Albumin 3.6 g/dl (3.5-5.0) Influenza Virus Type A (PCR) Negative (NEGATIVE) Influenza Virus Type B (PCR) Negative (NEGATIVE) Chemistry Test 06/28/18 02:16 06/28/18 02:22 White Blood Count 3.1 k/uL (4.5-11.0) Red Blood Count 3.35 M/uL (4.17-5.56) Hemoglobin 10.2 g/dL (12.0-16.0) Hematocrit 29.6 % (34.0-47.0) Mean Corpuscular Volume 88.4 fL (80.0-96.0) Mean Corpuscular Hemoglobin 30.4 pg (26.0-33.0) Mean Corpuscular Hemoglobin Concent 34.4 g/dL (32.0-36.0) Red Cell Distribution Width 19.8 % (11.5-14.5) Platelet Count 486 K/uL (150-450) Mean Platelet Volume 7.4 fL (7.2-11.1) Neutrophils (%) (Auto) 50.7 % (39.4-72.5) Lymphocytes (%) (Auto) 30.5 % (17.6-49.6) Monocytes (%) (Auto) 10.4 % (4.1-12.4) Eosinophils (%) (Auto) 4.8 % (0.4-6.7) Basophils (%) (Auto) 3.6 % (0.3-1.4) Nucleated RBC Relative Count (auto) 0.1 /100WBC Neutrophils # (Auto) 1.6 K/uL (2.0-7.4) Lymphocytes # (Auto) 0.9 K/uL (1.3-3.6) Monocytes # (Auto) 0.3 K/uL (0.3-1.0) Eosinophils # (Auto) 0.1 K/uL (0.0-0.5) Basophils # (Auto) 0.1 K/uL (0.0-0.1) Nucleated RBC Absolute Count (auto) 0.00 K/uL Peripheral Blood Smear Yes Y/N D-Dimer Quantitative (PE/DVT) 1.84 ug/ml (0-0.50) Glomerular Filtration Rate Calc 4.8 Calcium Level 9.1 mg/dl (8.4-10.2) Total Bilirubin 0.6 mg/dl (0.2-1.3) Aspartate Amino Transf (AST/SGOT) 22 U/L (0-35) Alanine Aminotransferase (ALT/SGPT) 9 U/L (0-56) Alkaline Phosphatase 75 U/L (0-126) Troponin I < 0.012 ng/ml B-Type Natriuretic Peptide 90 pg/ml (0-100) Total Protein 6.5 g/dl (6.3-8.2) Albumin 3.6 g/dl (3.5-5.0) Influenza Virus Type A (PCR) Negative (NEGATIVE) Influenza Virus Type B (PCR) Negative (NEGATIVE) Coagulation Test 06/28/18 02:16 D-Dimer Quantitative (PE/DVT) 1.84 ug/ml EKG/Imaging EKG Interpretation EKG shows sinus rhythm with no significant ST segment or T-wave abnormalities ventricular rate is 70 bpm. Monitor Interpretation: Normal Sinus Rhythm Imaging FACILITY: [facility] [place] PATIENT NAME: Celian Ramos : 1990 MR: [id number] V: [id number] EXAM DATE: ORDERING PHYSICIAN: FOUZIA SINGH TECHNOLOGIST: Location: [facility] Patient: Celina Ramos : 1990 Visit/Account:[id number] Date of Sevice: 06/28/2018 CHEST PA LAT HISTORY: Chest pain and chronic cough. COMPARISON: 04/08/2018 and studies dating to 01/02/2018. TECHNIQUE: PA and lateral views of the chest. FINDINGS: Pulmonary/pleura: Lungs are clear. There is no pneumothorax or pleural effusion. Cardiomediastinal: Cardiac and mediastinal silhouettes are within normal limits. Bones/soft tissues: No acute osseous abnormality. There is free air in the abdomen under the right hemidiaphragm, as has been present on prior studies. IMPRESSION: 1. No acute cardiopulmonary process. 2. Free air is again noted under the right hemidiaphragm. Per report on prior examination, the patient is on peritoneal dialysis, and this is likely the c ause. Report Dictated By: Shobha Carlin at 06/28/2018 2:47 AM Report E-Signed By: Shobha Carlin at 06/28/2018 2:49 AM WSN:[id number] PATIENT NAME: Celina Ramos : 1990 MR: [id number] V: [id number] EXAM DATE: [id number] ORDERING PHYSICIAN: FOUZIA SINGH TECHNOLOGIST: Location: [facility] Patient: Celina Ramos : 1990 Visit/Account:[id number] Date of Sevice: 06/28/2018 CT PE DATE: 06/28/2018 3:33 AM INDICATION: Shortness of breath, hypoxia. COMPARISON: Same-day chest radiographs, CT abdomen and pelvis 06/16/2018. TECHNIQUE: Axial CT angiogram was obtained through the chest with intravenous contrast. Sagittal and coronal MPR and MIP coronal reformations were also generated. 75 mL isovue 370. One of the following dose optimization techniques was utilized in the performance of this exam: Automated exposure control; adjustment of the mA and/or kV according to the patient's size; or use of an iterative reconstruction technique. Specific details can be referenced in the facility's radiology CT exam operational policy. FINDINGS: Thyroid / Thoracic Inlet: No visualized thyroid nodule or supraclavicular lymphadenopathy. Pulmonary Arteries: Examination mildly limited beyond the segmental level. No demonstrated pulmonary embolism. Heart and Aorta: Normal-size heart with no pericardial effusion. Nonaneurysmal thoracic aorta. Mediastinum and Zuleima: No lymphadenopathy. Mildly prominent lymph nodes are likely reactive. Lungs and Pleura: No pleural effusion or pneumothorax. Mild scarring and bronchiectasis in the right middle lobe and lingula. There is tree-in-bud nodularity in the right upper lobe, greatest in the posterior inferior aspect. Breast and Axilla: No axillary lymphadenopathy. No adenopathy. Upper Abdomen: Free fluid in the upper abdomen and a small volume of pn eumoperitoneum consistent with patient history of peritoneal dialysis. Bones and Soft Tissues: No suspicious osseous or soft tissue abnormality. IMPRESSION: 1. No apparent pulmonary embolism. 2. Tree-in-bud nodularity in the right upper lobe suspicious for infectious or inflammatory process. 3. Mild scarring and bronchiectasis in the right middle lobe and lingula is nonspecific, but could indicate prior infection with nontuberculous mycobacterium. 4. Free fluid in the upper abdomen and a small volume of pneumoperitoneum consistent with patient history of peritoneal dialysis. Report Dictated By: Jeff Cobos MD at 06/28/2018 3:33 AM Report E-Signed By: Jeff Cobos MD at 06/28/2018 3:49 AM WSN:[id number] ED Course/Re-evaluation ED Course 06/28/2018 1:54:57 am 28-year-old female on peritoneal dialysis with dyspnea, orthopnea. No chest pain or pressure. Plan at this time will be to check CBC CMP were also check EKG chest x-ray and brain natretic peptide.; We'll also give breathing treatment for bronchospasm heard on auscultation during exam. 06/28/2018 2:59:21 am creatinine 9.7 which is less than prior creatinine of 11 that was measured on June 16. Hemoglobin is now 10 from 7 after transfusion during prior hospitalization. Patient with elevated d-dimer. Considering the patient's hypoxia and shortness of breath must consider pulmonary embolism awaiting results of CT scan. 06/28/2018 3:57:[address] negative for pulmonary embolism however right upper lobe is demonstrating a "tree) phenomenon" which radiology is interpreting is either infectious or inflammatory process. Patient was recently hospitalized at risk for pneumonia. We'll treat with IV Rocephin and Zithromax. Decision to Disposition Date: Jun 28, 2018 Decision to Disposition Time: 05:00 Depart Departure Latest Vital Signs Vital Signs Date Time Temp Pulse Resp B/P (MAP) Pulse Ox O2 Delivery O2 Flow Rate FiO2 06/28/18 04:50 80 06/28/18 04:35 70 06/28/18 04:30 120/94 (103) 06/28/18 02:53 16 06/28/18 02:44 Nasal Cannula 2.0 06/28/18 01:36 98.1 Impression: Primary Impression: Pneumonia Condition: Improved Disposition: HOME OR SELF-CARE Referrals: SANDY ART MD (PCP) New Scripts Azithromycin (ZITHROMAX) 250 Mg Tablet 1 TAB PO QDAY for 4 Days, #4 TAB 0 Refills Next dose on 06/29/18 Prov: FOUZIA SINGH MD 06/28/18 Departure Forms: ER Transition Record, Home Oxygen, Nebulizer RX, Home Oxygen Company Chosen by Patient: Durable Medical Equipment-Oxygen: Oxygen Concentrator, Portable Oxygen Gas Reason for Use/Diagnosis: pneumonia Start Date of the Order: Jun 28, 2018 Dosage or Concentration (if applicable) - LPM: 2 Route of Administration (if applicable): Nasal Cannula Frequency of Use: While Sleeping Duration Home O2 Required: 7 Duration Units: Days Room Air Oxygen Saturation: 85 ER Prescribing Physician's Name: Fouzia Singh NPI Numbers for Local ER MDs: Francisco [id number] Medications Reconciliation, Patient Portal Information Patient Instructions: Community Acquired Pneumonia (DC) Problem Qualifiers Primary Impression: Pneumonia Pneumonia type: due to unspecified organism Laterality: right Lung lo cation: upper lobe of lung Qualified Codes: J18.1 - Lobar pneumonia, unspecified organism FOUZIA SINGH MD Jun 28, 2018 01:38
[2018-06-28] MEDS ORDERED: ALBUTEROL/IPRATROPIUM 3 ML NEB NEB ONE ×2 (01:55→02:40)
--- NOTE | 2018-06-28 02:55 | RADIOLOGY IMAGING REPORT ---
FACILITY: [facility] [place] PATIENT NAME: Celina Ramos : 1990 MR: [id number] V: [id number] EXAM DATE: ORDERING PHYSICIAN: FOUZIA SIGALA [place]CHNOLOGIST: [place] [facility] [place] : 1990 Visit/Account:[id number] Date of Sevice: 06/28/2018 CHEST PA LAT HISTORY: Chest pain and chronic cough. COMPARISON: 04/08/2018 and studies dating to 01/02/2018. TECHNIQUE: PA and lateral views of the chest. FINDINGS: Pulmonary/pleura: Lungs are clear. There is no pneumothorax or pleural effusion. Cardiomediastinal: Cardiac and mediastinal silhouettes are within normal limits. Bones/soft tissues: No acute osseous abnormality. There is free air in the abdomen under the right he midiaphragm, as has been present on prior studies. IMPRESSION: 1. No acute cardiopulmonary process. 2. Free air is again noted under the right hemidiaphragm. Per report on prior examination, the patien t is on peritoneal dialysis, and this is likely the cause. Report Dictated By: Shobha Carlin at 06/28/2018 2:47 AM Report E-Signed By: Shobha Carlin at 06/28/2018 2:49 AM WSN:[id number]
[2018-06-28 02:56] LABS: PLATELET COUNT, AUTOMATED 486 K/uL (150-450)
[2018-06-28] MEDS ORDERED: IOPAMIDOL 76% 75 ML INFUS BTL 75 ML ONE (03:03)
[2018-06-28] MEDS ORDERED: NS(*) 0.9% 50 ML BAG 50 ML ONE (03:03)
--- NOTE | 2018-06-28 03:53 | RADIOLOGY IMAGING REPORT ---
[place] [facility] [place] NAME: Celina Ramos : 1990 MR: [id number] V: [id number] EXAM DATE: [id number] ORDERING PHYSICIAN: FOUZIA SIGALA TECHNOLOGIST: Location: [facility] [place] Patient: Celina Ramos : 1990 Visit/Account:[id number] Date of Sevice: 06/28/2018 CT PE DATE: 06/28/2018 3:33 AM INDICATION: Shortness of breath, hypoxia. COMPARISON: Same-day chest radiographs, CT abdomen and pelvis 06/16/2018. TECHNIQUE: Axial CT angiogram was obtained through the chest with intravenous contrast. Sagittal an d coronal MPR and MIP coronal reformations were also generated. 75 mL isovue 370. One of the follow ing dose optimization techniques was utilized in the performance of this exam: Automated exposure con trol; adjustment of the mA and/or kV according to the patient's size; or use of an iterative reconst ruction technique. Specific details can be referenced in the facility's radiology CT exam operationa l policy. FINDINGS: Thyroid / Thoracic Inlet: No visualized thyroid nodule or supraclavicular lymphadenopathy. Pulmonary Arteries: Examination mildly limited beyond the segmental level. No demonstrated pulmonar y embolism. Heart and Aorta: Normal-size heart with no pericardial effusion. Nonaneurysmal thoracic aorta. Mediastinum and Zuleima: No lymphadenopathy. Mildly prominent lymph nodes are likely reactive. Lungs and Pleura: No pleural effusion or pneumothorax. Mild scarring and bronchiectasis in the righ t middle lobe and lingula. There is tree-in-bud nodularity in the right upper lobe, greatest in the posterior inferior aspect. Breast and Axilla: No axillary lymphadenopathy. No adenopathy. Upper Abdomen: Free fluid in the upper abdomen and a small volume of pneumoperitoneum consistent with patient history of peritoneal dialysis. Bones and Soft Tissues: No suspicious osseous or soft tissue abnormality. IMPRESSION: 1. No apparent pulmonary embolism. 2. Tree-in-bud nodularity in the right upper lobe suspicious for infectious or inflammatory process. 3. Mild scarring and bronchiectasis in the right middle lobe and lingula is nonspecific, but could i ndicate prior infection with nontuberculous mycobacterium. 4. Free fluid in the upper abdomen and a small volume of pneumoperitoneum consistent with patient hi story of peritoneal dialysis. Report Dictated By: Jeff Cobos MD at 06/28/2018 3:33 AM Report E-Signed By: Jeff Cobos MD at 06/28/2018 3:49 AM WSN:[id number]
[2018-06-28] MEDS ORDERED: AZIT-1 PO (03:58)
[2018-06-28] MEDS ORDERED: cefTRIAXone 1 GM VIAL IVP ONE (04:00)
[2018-06-28] MEDS ORDERED: AZITHROMYCIN 250 MG TAB PO ONE (04:00)
[2018-06-28 04:30] VITALS: BP 120/94
--- NOTE | 2018-06-28 05:43 | EKG ---
FACILITY: [facility] - [place] PATIENT NAME: TEODORA SIMON : [id number] MR: [id number] V: [id number] EXAM DATE: ORDERING PHYSICIAN: FOUZIA SIGALA TECHNOLOGIST: JOVANY Soto Reason : Blood Pressure : / mmHG Vent. Rate : 070 BPM Atrial Rate : 070 BPM P-R Int : 142 ms QRS Dur : 082 ms QT Int : 444 ms P-R-T Axes : 015 004 042 degrees QTc Int : 479 ms Normal sinus rhythm Normal ECG When compared with ECG of 16-JUN-2018 19:43, Nonspecific T wave abnormality no longer evident in Inferior leads Nonspecific T wave abnormality no longer evident in Anterior leads Confirmed by David Boykin ([id number]) on 06/28/2018 6:34:18 AM Referred By: Confirmed By:David Torres
== END 2018-06-28 04:54 | disposition home or self-care (01) ==
LOC: ER 02:01
DX: J18.1 Lobar pneumonia, unspecified organism (principal); R06.02 Shortness of breath
CPT/HCPCS: 71046; 71275; 83880; 84484; 85025; 85379; 87502; 93005; 94640; 96374; 99284; J0696; J7050; J7620; Q0144; Q9967; 82040; 82247; 82310; 82374; 82435; 82565; 82947; 84075; 84132; 84155; 84295; 84450; 84460; 84520

== ENCOUNTER → 2018-07-04 | Outpatient (CLI) | payer MEDICARE, MEDICAID ==
[~2018-07-04] MED LIST changes: +ALBU2.5V36 INH; +AZIT-1 PO; +PROM-110 PO; +VANC750F IV
== END ==
LOC: LAB 15:24
PROVIDERS: ATTEND Internal Medicine
DX: K65.9 Peritonitis, unspecified (principal)
CPT/HCPCS: 36415; 80202

== ENCOUNTER → 2018-07-29 | Outpatient (CLI) | payer MEDICARE, MEDICAID | LOC: LAB 10:12 | PROVIDERS: ATTEND Internal Medicine Nephrology | DX: Z01.818 Encounter for other preprocedural examination (principal); N18.6 End stage renal disease | CPT/HCPCS: 36415 ==

== ENCOUNTER 2018-08-11 21:12 | Emergency (ER) | payer MEDICARE, MEDICAID ==
--- NOTE | 2018-08-11 22:09 | ER Report ---
History and Physical Time Seen By MD: 22:09 Hx. of Stated Complaint: PAIN SINCE SUNDAY IN ABDOMEN. FEELS LIKE WHEN HAD AN OVARIAN CYST RUPTER TWO MONTHS AGO HPI/ROS CHIEF COMPLAINT: Abdominal pain HISTORY OF PRESENT ILLNESS: This is a 28 year old female. She has been having right lower quadrant abdominal pain, started on Sunday. Severe pain, worsening over the last 2 days. Worsens with movement, going over bumps in the car. Was on the way to [place] to help with moving for her parents when it started. 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 Is on Imuran. No fevers during this pain. Feels similar to prior ovarian cyst. Noted increased fibrin in dialysate fluid, similar to prior ovarian cyst. Does not make urine. No problems with bowels during this episode. Allergies: Coded Allergies: fentanyl (Unverified Allergy, Severe, SEIZURES, 08/11/18) vancomycin (Unverified Allergy, Unknown, ORAL SWELLING, 08/11/18) levofloxacin (Verified Adverse Reaction, Intermediate, Severe arthralgia, 08/11/18) meperidine (Unverified Adverse Reaction, Unknown, HALLUCINATIONS, 08/11/18) morphine (Unverified Adverse Reaction, Unknown, ITCHING, 08/11/18) Home Meds Reported Medications Vancomycin In Dextrose,Iso-Osm (VANCOMYCIN 750 MG/150 ML BAG) Unknown Strength Froz.piggy, IV 07/05/18 Promethazine Hcl (PROMETHAZINE HCL) 25 Mg Tablet, 25 MG PO Q8H PRN for PRN, TAB 07/05/18 Albuterol Sulfate 0.083% (ALBUTEROL SULFATE 0.083%) 2.5 Mg/3 Ml Vial.neb, 2.5 MG INH BID, INH 07/05/18 Topiramate (TOPAMAX) 100 Mg Tablet, 150 MG PO BID 12/28/17 Ondansetron Hcl (ZOFRAN) 4 Mg Tablet, 2 TAB PO PRN, TAB 12/28/17 Melatonin (MELATONIN) 5 Mg Tablet, 1 TAB PO QHS 12/28/17 Sevelamer Carbonate (RENVELA) 800 Mg Tablet, 1 TAB PO WITH MEALS 12/28/17 Omeprazole (OMEPRAZOLE) 40 Mg Capsule.dr, 1 CAP PO BID, CAP 12/28/17 Azathioprine (IMURAN) 50 Mg Tablet, 3 TAB PO QDAY 12/28/17 Reviewed Nurses Notes: Yes Hx Smoking: No Smoking Status: Never Smoker Constitutional Vital Sign - Last 24 Hours 08/11/18 08/11/18 08/11/18 08/11/18 22:00 22:01 22:12 22:27 Temp 97.9 Pulse 57 54 60 Resp 16 B/P (MAP) 110/78 (89) 110/78 Pulse Ox 98 95 96 O2 Delivery Room Air 08/11/18 08/11/18 08/11/18 08/11/18 22:42 22:56 22:57 23:02 Pulse 55 62 61 B/P (MAP) 110/80 (90) Pulse Ox 97 96 96 08/11/18 08/11/18 08/11/18 08/11/18 23:04 23:07 23:12 23:17 Pulse 57 58 58 Pulse Ox 98 100 99 O2 Flow Rate 2.0 08/11/18 08/11/18 08/11/18 08/11/18 23:22 23:27 23:30 23:32 Pulse 61 59 ??? B/P (MAP) 112/82 (92) Pulse Ox 99 99 100 08/11/18 08/11/18 08/11/18 08/11/18 23:37 23:42 23:47 23:52 Pulse 64 60 ??? 61 Pulse Ox 100 97 91 96 08/11/18 08/12/18 08/12/18 08/12/18 23:57 00:00 00:02 00:07 Pulse 61 ? B/P (MAP) 108/85 (93) Pulse Ox 84 75 08/12/18 08/12/18 08/12/18 08/12/18 00:12 00:22 00:27 00:30 Pulse ? 52 B/P (MAP) 112/78 (89) Pulse Ox 100 97 08/12/18 08/12/18 08/12/18 08/12/18 00:32 00:37 00:47 00:52 Pulse 55 57 57 60 Pulse Ox 100 100 98 08/12/18 08/12/18 08/12/18 08/12/18 00:57 01:00 01:05 01:20 Pulse 58 ??? 49 B/P (MAP) 101/71 (81) Pulse Ox 99 99 08/12/18 08/12/18 08/12/18 08/12/18 01:30 01:35 02:00 02:05 Pulse 49 ??? B/P (MAP) 109/76 (87) 98/66 (77) Pulse Ox 100 100 08/12/18 08/12/18 08/12/18 08/12/18 02:20 02:30 02:35 02:50 Pulse 60 ??? 56 B/P (MAP) 96/61 (73) Pulse Ox 98 100 100 08/12/18 08/12/18 08/12/18 08/12/18 03:00 03:05 03:20 03:30 Pulse 53 61 B/P (MAP) 105/82 (90) 113/85 (94) Pulse Ox 100 100 08/12/18 08/12/18 08/12/18 08/12/18 03:35 03:50 03:55 04:00 Pulse 43 58 50 B/P (MAP) 98/71 (80) Pulse Ox 100 100 100 08/12/18 08/12/18 08/12/18 08/12/18 04:10 04:15 04:30 04:45 Pulse 48 59 46 52 B/P (MAP) 99/74 (82) Pulse Ox 100 100 99 98 08/12/18 04:59 Pulse 54 Intake and Output 08/11/18 08/11/18 08/12/18 14:59 22:59 06:59 Intake Total 546 ml Balance 546 ml Physical Exam General Appearance: The patient is alert. Acute distress due to pain. Eyes: Pupils are equal, round. Reactive to light. No pallor, injection or icterus. ENT: Mucous membranes are moist. Normal oral mucosa. Respiratory: Lungs are clear to auscultation. Cardiovascular: Regular rate and rhythm. No murmurs, gallops or rubs. Normal capillary refill. No edema. Gastrointestinal: Abdomen is soft, very tender localized in RLQ. Has rebound and guarding. Nondistended. Surface of abdomen and peritoneal dialysis catheter sites look normal. Normal active bowel sounds. Has no CVA tenderness with percussion. Neurological: Alert and oriented x3. No focal neurologic deficits Skin: Warm and dry. No rashes. Musculoskeletal: No tenderness in palpation of the spinous processes, but mild right lower lumbar pain with palpation. DIFFERENTIAL DIAGNOSIS: After history and physical exam, differential diagnosis was considered for abdominal pain including but not limited to appendicitis, colitis, peritonitis, ovarian cyst, torsion. Medical Decision Making Data Points Result Diagram: 08/11/18223108/11/182231 Laboratory Hematology Test 08/11/18 22:32 08/12/18 00:00 Red Blood Count 2.91 M/uL (4.17-5.56) Mean Corpuscular Volume 93.1 fL (80.0-96.0) Mean Corpuscular Hemoglobin 31.5 pg (26.0-33.0) Mean Corpuscular Hemoglobin Concent 33.9 g/dL (32.0-36.0) Red Cell Distribution Width 17.7 % (11.5-14.5) Mean Platelet Volume 9.0 fL (7.2-11.1) Neutrophils (%) (Auto) 60.2 % (39.4-72.5) Lymphocytes (%) (Auto) 21.0 % (17.6-49.6) Monocytes (%) (Auto) 13.9 % (4.1-12.4) Eosinophils (%) (Auto) 3.6 % (0.4-6.7) Basophils (%) (Auto) 1.3 % (0.3-1.4) Nucleated RBC Relative Count (auto) 0.0 /100WBC Neutrophils # (Auto) 2.5 K/uL (2.0-7.4) Lymphocytes # (Auto) 0.9 K/uL (1.3-3.6) Monocytes # (Auto) 0.6 K/uL (0.3-1.0) Eosinophils # (Auto) 0.1 K/uL (0.0-0.5) Basophils # (Auto) 0.1 K/uL (0.0-0.1) Nucleated RBC Absolute Count (auto) 0.00 K/uL Sodium Level 131 mmol/L (137-145) Potassium Level 2.9 mmol/L (3.5-5.0) Chloride Level 95 mmol/L (98-107) Carbon Dioxide Level 27 mmol/L (22-31) Blood Urea Nitrogen 35 mg/dl (7-18) Creatinine 11.40 mg/dl (0.52-1.04) Glomerular Filtration Rate Calc 4.0 Random Glucose 85 mg/dl (75-110) Lactate 1.4 mmol/L (0.7-2.1) Calcium Level 8.0 mg/dl (8.4-10.2) Total Bilirubin 0.4 mg/dl (0.2-1.3) Aspartate Amino Transf (AST/SGOT) 11 U/L (0-35) Alanine Aminotransferase (ALT/SGPT) 14 U/L (0-56) Alkaline Phosphatase 53 U/L (0-126) Total Protein 5.5 g/dl (6.3-8.2) Albumin 3.0 g/dl (3.5-5.0) Human Chorionic Gonadotropin, Qual Negative (NEGATIVE) Chemistry Test 08/11/18 22:32 08/12/18 00:00 White Blood Count 4.1 k/uL (4.5-11.0) Red Blood Count 2.91 M/uL (4.17-5.56) Hemoglobin 9.2 g/dL (12.0-16.0) Hematocrit 27.0 % (34.0-47.0) Mean Corpuscular Volume 93.1 fL (80.0-96.0) Mean Corpuscular Hemoglobin 31.5 pg (26.0-33.0) Mean Corpuscular Hemoglobin Concent 33.9 g/dL (32.0-36.0) Red Cell Distribution Width 17.7 % (11.5-14.5) Platelet Count 278 K/uL (150-450) Mean Platelet Volume 9.0 fL (7.2-11.1) Neutrophils (%) (Auto) 60.2 % (39.4-72.5) Lymphocytes (%) (Auto) 21.0 % (17.6-49.6) Monocytes (%) (Auto) 13.9 % (4.1-12.4) Eosinophils (%) (Auto) 3.6 % (0.4-6.7) Basophils (%) (Auto) 1.3 % (0.3-1.4) Nucleated RBC Relative Count (auto) 0.0 /100WBC Neutrophils # (Auto) 2.5 K/uL (2.0-7.4) Lymphocytes # (Auto) 0.9 K/uL (1.3-3.6) Monocytes # (Auto) 0.6 K/uL (0.3-1.0) Eosinophils # (Auto) 0.1 K/uL (0.0-0.5) Basophils # (Auto) 0.1 K/uL (0.0-0.1) Nucleated RBC Absolute Count (auto) 0.00 K/uL Glomerular Filtration Rate Calc 4.0 Lactate 1.4 mmol/L (0.7-2.1) Calcium Level 8.0 mg/dl (8.4-10.2) Total Bilirubin 0.4 mg/dl (0.2-1.3) Aspartate Amino Transf (AST/SGOT) 11 U/L (0-35) Alanine Aminotransferase (ALT/SGPT) 14 U/L (0-56) Alkaline Phosphatase 53 U/L (0-126) Total Protein 5.5 g/dl (6.3-8.2) Albumin 3.0 g/dl (3.5-5.0) Human Chorionic Gonadotropin, Qual Negative (NEGATIVE) EKG/Imaging Imaging Limited ultrasound of the abdomen: Indication: Right lower quadrant pain. History of peritoneal dialysis. Technique: Targeted imaging was performed in the right lower quadrant. Comparison: None available. Findings: The appendix was not clearly visualized. Free fluid is present, most likely related to peritoneal dialysis. No circumscribed fluid collection is clearly identified. Impression: See above. Report Dictated By: Randall Winston MD at 08/12/2018 12:44 AM Ultrasound of the pelvis: Indication: Right lower quadrant and pelvic pain. The patient is on peritoneal dialysis. Technique: Transvaginal imaging, with Doppler. Comparison: 06/16/2018 Uterus: Normal in size and shape, measuring 5.4 x 5.0 x 3.0 cm. There are no signs of mass, calcification, or fluid. The endometrial stripe measures 4 mm. Right ovary/adnexa: The right ovary measures 3.8 x 3.1 x 1.8 cm. A dominant cyst is present, measuring 2.4 cm in maximum dimension. Doppler images demonstrate no evidence of torsion. Left ovary/adnexa: The left ovary measures 3.3 x 2.9 x 2.6 cm. Multiple follicular cysts are present, measuring up to 1.9 cm. Doppler images demonstrate no evidence of torsion. Free fluid: Moderate free fluid is present, most likely related to peritoneal dialysis. IMPRESSION: No acute findings are clearly identified. Report Dictated By: Randall Winston MD at 08/12/2018 1:[address] of the abdomen and pelvis without contrast: Indication: Right-sided abdominal pain. The patient is on peritoneal dialysis. Technique: Helical CT was performed through the abdomen and pelvis without contrast. Multiplanar reconstructions are reviewed. One of the following dose optimization techniques was utilized in the performance of this exam: Automated exposure control; adjustment of the mA and/or kV according to the patient's size; or use of an iterative reconstruction technique. Specific details can be referenced in the facility's radiology CT e xam operational policy. Comparison: 06/16/2018 Lower lung winters: There is a new small area of parenchymal consolidation in the left lower lobe, compatible with pneumonia or atelectasis. There is minimal linear opacity at the right base, consistent with atelectasis. There are no signs of pleural effusion. Liver: Normal in size, shape, and density. Gallbladder/biliary tree: Unremarkable, as visualized. Pancreas: Normal in size, shape, and density. Spleen: Normal in size, shape, and density. Adrenal glands: Within normal limits. Kidneys/urinary bladder: There is marked atrophy of the [place] kidneys, consistent with the history of end-stage renal disease. The bladder is unremarkable, as visualized. Intestinal structures: There are no signs of obstruction or focal dilatation. The appendix is not clearly visualized. There appear to be some inflammatory changes near the tip of cecum, which are nonspecific. A similar pattern was observed on the previous study. If the appendix has not been removed, then acute appendicitis cannot be excluded. Further clinical correlation is recommended. Pelvis: An IUD is present in the uterus. There appear to be persistent small cysts in the left ovary. The uterus and adnexal structures are otherwise unchanged. Aorta and vascular structures: Within normal limits. Ascites or fluid collections: The peritoneal dialysis catheter appears unchanged in the right lower quadrant and right hemipelvis. There is a moderate volume of homogeneous fluid in the peritoneal cavity, consistent with peritoneal dialysis. There is a small amount of air in the peritoneal cavity, also consistent with dialysis therapy. No circumscribed fluid collection is clearly identified. Skeletal structures: Intact and unchanged. Impression: There appear to be some inflammatory changes near the tip of cecum, which are nonspecific. A similar pattern was observed on the previous study. If the appendix has not been removed, then acute appendicitis cannot be excluded. Further clinical correlation is recommended. Report Dictated By: Randall Winston MD at 08/12/2018 1:29 AM ED Course/Re-evaluation Clinical Indication for ER IV: Hydration, IV Access ED Course After the patient's initial evaluation, my basic concern was the possibility of acute appendicitis. With her history of ovarian cysts, this was certainly possible as well. Started with ultrasound, and it did show some cysts on the ovaries but normal blood flow and no evidence of torsion. With her peritoneal dialysate, we cannot tell if there is free fluid. We also did an ultrasound of the right lower quadrant looking to see if we could see the appendix and this was not visualized. Prior to ultrasound, because of her pain, we did give her pain medicines. She has multiple allergies and we gave her Dilaudid 0.5 mg IV. When she receives pain medicine she also needs Benadryl also gave 25 mg of IV Benadryl. Also gave 0.25 mg of IV Ativan along with this. This seemed to help the pain but she still had a difficult time during the ultrasound. Dilaudid 0.5 mg was repeated after the ultrasound was completed. Labs came back showing a normal white blood cell count. She did have changes in the metabolic panel consistent with her renal failure. Her potassium was a little bit low and she indicated that she is not able to take oral potassium as it is too hard on her stomach so we did order a 20 mEq IV potassium over a couple of hours, Which she has used in the past when her potassium has been low. CT scan of the abdomen and pelvis without contrast was obtained. This showed inflammation at the tip of the cecum but did not visualize the appendix. Cannot rule out acute appendicitis. I called and spoke with my dental surgeon conservation enforcement officer, Dr. Lanza. He reviewed the CT scan and labs and discussed the case with me. Recommendation was made for transfer to facility where surgery could evaluate where they could also handle the complications that the dialysis prevents us from the dressing. I called and spoke with Dr. Wolf, general surgery, who accepted the patient but asked if we would send the patient to the ER. I spoke to Dr. Castaneda, attending in the ER, and reviewed the case with him as well. We are starting IV Zosyn given the fact that we're worried about the possibility of appendicitis. Decision to Disposition Date: Aug 12, 2018 Decision to Disposition Time: 04:15 Transfer Facility Patient was transferred to [facility] via ambulance. The transfer was non-emergent, and was required because the capabilities of the receiving hospital. Consent for transfer was obtained from the patient. See EMTALA for transfer orders. Depart Departure Latest Vital Signs Vital Signs Date Time Temp Pulse Resp B/P (MAP) Pulse Ox O2 Delivery O2 Flow Rate FiO2 08/12/18 04:59 54 08/12/18 04:45 98 08/12/18 04:30 99/74 (82) 08/11/18 23:04 2.0 08/11/18 22:01 97.9 16 Room Air Impression: Primary Impression: Right lower quadrant abdominal pain Additional Impressions: Peritoneal dialysis status Immunosuppression Condition: Condition Unchanged Disposition: XFER TO [facility]UTE [facility]ARE HOSPITAL Referrals: SANDY ART MD (PCP) Problem Qualifiers JUNIOR BAE MD Aug 11, 2018 22:09
[2018-08-11] MEDS ORDERED: ONDANSETRON 4 MG/2 ML VIAL IVP ONE (22:25)
[2018-08-11] MEDS ORDERED: HYDROMORPHONE HCL 1 MG/ML SYRINGE IVP ONE ×2 (22:25→23:30)
[2018-08-11] MEDS ORDERED: LORazepam 2 MG/ML VIAL IVP ONE (22:25)
[2018-08-11] MEDS ORDERED: diphenhydrAMINE 50 MG/ML VIAL IVP ONE (22:25)
[2018-08-11 22:44] LABS: PLATELET COUNT, AUTOMATED 278 K/uL (150-450)
[2018-08-11] MEDS ORDERED: KCL (*) 20 MEQ/100 ML PREMIX 100 ML IV ONE (23:10)
[2018-08-12] MEDS ORDERED: HYDROMORPHONE HCL 1 MG/ML SYRINGE IVP ONE ×3 (00:50→04:20)
[2018-08-12] MEDS ORDERED: diphenhydrAMINE 50 MG/ML VIAL IVP ONE (00:55)
--- NOTE | 2018-08-12 00:57 | RADIOLOGY IMAGING REPORT ---
FACILITY: [facility] PATIENT NAME: Celina Ramos : 1990 MR: [id number] V: [id number] EXAM DATE: ORDERING PHYSICIAN: JUNIOR BAE TECHNOLOGIST: Location: [facility] [place] Patient: Celina Ramos : 1990 Visit/Account:[id number] Date of Sevice: 08/11/2018 Limited ultrasound of the abdomen: Indication: Right lower quadrant pain. History of peritoneal dialysis. Technique: Targeted imaging was performed in the right lower quadrant. Comparison: None available. Findings: The appendix was not clearly visualized. Free fluid is present, most likely related to henrique toneal dialysis. No circumscribed fluid collection is clearly identified. Impression: See above. Report Dictated By: Randall Winston MD at 08/12/2018 12:44 AM Report E-Signed By: Randall Winston MD at 08/12/2018 12:54 AM WSN:[id number]
--- NOTE | 2018-08-12 01:17 | RADIOLOGY IMAGING REPORT ---
FACILITY: [facility] [place] PATIENT NAME: Celina Ramos : 1990 MR: [id number] V: [id number] EXAM DATE: ORDERING PHYSICIAN: JUNIOR BAE TECHNOLOGIST: Location: [facility] Patient: Celina Ramos : 1990 Visit/Account:[id number] Date of Sevice: 08/11/2018 Ultrasound of the pelvis: Indication: Right lower quadrant and pelvic pain. The patient is on peritoneal dialysis. Technique: Transvaginal imaging, with Doppler. Comparison: 06/16/2018 Uterus: Normal in size and shape, measuring 5.4 x 5.0 x 3.0 cm. There are no signs of mass, calcifica tion, or fluid. The endometrial stripe measures 4 mm. Right ovary/adnexa: The right ovary measures 3.8 x 3.1 x 1.8 cm. A dominant cyst is present, measurin g 2.4 cm in maximum dimension. Doppler images demonstrate no evidence of torsion. Left ovary/adnexa: The left ovary measures 3.3 x 2.9 x 2.6 cm. Multiple follicular cysts are present, measuring up to 1.9 cm. Doppler images demonstrate no evidence of torsion. Free fluid: Moderate free fluid is present, most likely related to peritoneal dialysis. IMPRESSION: No acute findings are clearly identified. Report Dictated By: Randall Winston MD at 08/12/2018 1:07 AM Report E-Signed By: Randall Winston MD at 08/12/2018 1:13 AM WSN:[id number]
--- NOTE | 2018-08-12 01:51 | RADIOLOGY IMAGING REPORT ---
[place] [facility] [place] Celina Ramos : 1990 MR: [id number] V: [id number] EXAM DATE: ORDERING PHYSICIAN: JUNIOR BAE TECHNOLOGIST: Location: [facility] [place] Patient: Celina Ramos : 1990 Visit/Account:[id number] Date of Sevice: 08/12/2018 CT of the abdomen and pelvis without contrast: Indication: Right-sided abdominal pain. The patient is on peritoneal dialysis. Technique: Helical CT was performed through the abdomen and pelvis without contrast. Multiplanar rec onstructions are reviewed. One of the following dose optimization techniques was utilized in the performance of this exam: Autom ated exposure control; adjustment of the mA and/or kV according to the patient's size; or use of an i terative reconstruction technique. Specific details can be referenced in the facility's radiology CT exam operational policy. Comparison: 06/16/2018 Lower lung winters: There is a new small area of parenchymal consolidation in the left lower lobe, com patible with pneumonia or atelectasis. There is minimal linear opacity at the right base, consistent with atelectasis. There are no signs of pleural effusion. Liver: Normal in size, shape, and density. Gallbladder/biliary tree: Unremarkable, as visualized. Pancreas: Normal in size, shape, and density. Spleen: Normal in size, shape, and density. Adrenal glands: Within normal limits. Kidneys/urinary bladder: There is marked atrophy of the [place] kidneys, consistent with the history o f end-stage renal disease. The bladder is unremarkable, as visualized. Intestinal structures: There are no signs of obstruction or focal dilatation. The appendix is not cedric john visualized. There appear to be some inflammatory changes near the tip of cecum, which are nonspe cific. A similar pattern was observed on the previous study. If the appendix has not been removed, th en acute appendicitis cannot be excluded. Further clinical correlation is recommended. Pelvis: An IUD is present in the uterus. There appear to be persistent small cysts in the left ovary. The uterus and adnexal structures are otherwise unchanged. Aorta and vascular structures: Within normal limits. Ascites or fluid collections: The peritoneal dialysis catheter appears unchanged in the right lower q uadrant and right hemipelvis. There is a moderate volume of homogeneous fluid in the peritoneal cavit y, consistent with peritoneal dialysis. There is a small amount of air in the peritoneal cavity, also consistent with dialysis therapy. No circumscribed fluid collection is clearly identified. Skeletal structures: Intact and unchanged. Impression: There appear to be some inflammatory changes near the tip of cecum, which are nonspecific . A similar pattern was observed on the previous study. If the appendix has not been removed, then ac mani appendicitis cannot be excluded. Further clinical correlation is recommended. Report Dictated By: Randall Winston MD at 08/12/2018 1:29 AM Report E-Signed By: Randall Winston MD at 08/12/2018 1:46 AM WSN:[id number]
[2018-08-12] MEDS ORDERED: NS(*) 0.9% 500 ML BAG 500 ML ONE (02:51)
[2018-08-12] MEDS ORDERED: PIPERACILLIN/TAZO*3.375GM VIAL 3.375 GM in NS(*) 0.9% 100 ML MINI-BAG 100 ML IVPB ONE (04:20)
[2018-08-12 04:30] VITALS: BP 99/74
[2018-08-12] MEDS ORDERED: LORazepam 2 MG/ML VIAL IVP ONE (05:20)
== END 2018-08-12 05:37 | disposition short-term general hospital (02) ==
LOC: ER 22:21
DX: R10.31 Right lower quadrant pain (principal); M31.7 Microscopic polyangiitis; Z99.2 Dependence on renal dialysis; Z79.899 Other long term (current) drug therapy
CPT/HCPCS: 74176; 76705; 76830; 83605; 84703; 85025; 96365; 96375; 96376; 99285; J1170; J1200; J2060; J2405; J2543; J3480; J7040; 82040; 82247; 82310; 82374; 82435; 82565; 82947; 84075; 84132; 84155; 84295; 84450; 84460; 84520

== ENCOUNTER → 2018-08-12 | Outpatient (CLI) | payer MEDICARE, MEDICAID | LOC: AMB 05:24 | PROVIDERS: ATTEND Nurse Practitioner | DX: R10.31 Right lower quadrant pain (principal); K37 Unspecified appendicitis; Z99.2 Dependence on renal dialysis | CPT/HCPCS: A0425; A0426 ==

== ENCOUNTER 2018-08-28 | Outpatient (RCR) | payer MEDICARE, MEDICAID ==
[~2018-08-28] MED LIST changes: +MELA5TAB3 PO; -MELA5TAB6 PO
[2018-08-28] MEDS ORDERED: LOPERAMIDE HCL 2 MG CAP PO PRN ×2 (06:00→09:10)
[2018-08-28] MEDS ORDERED: DEXTROSE 50% 50 ML SYR IVP PRN (06:00)
[2018-08-28] MEDS ORDERED: diphenhydr DIALYSIS 50 MG/ML IVP PRN ×2 (06:00→15:30)
[2018-08-28] MEDS ORDERED: PROMETHAZINE HCL 25 MG TAB PO PRN ×2 (06:00→15:30)
[2018-08-28] MEDS ORDERED: DIALYSIS ACETAMINOPHEN 325 MG PO PRN (06:00)
[2018-08-28] MEDS ORDERED: HEPARIN SOD IVP PRN (06:00)
[2018-08-28 16:06] LABS: PLATELET COUNT, AUTOMATED 356 K/uL (150-450)
[2018-08-30] MEDS: DARBEPOETIN ESRD 100 MCG/0.5ML SYR IVP PRN (16:09)
[2018-08-31] MEDS ORDERED: HYOS0.1225 PO (00:15)
[2018-09-02] MEDS ORDERED: LIDO15SO2 PO (19:35)
[2018-09-06] MEDS: DARBEPOETIN ESRD 100 MCG/0.5ML SYR IVP PRN (18:51)
[2018-09-13] MEDS ORDERED: DARBEPOETIN ESRD 25 MCG/ML IVP PRN
[2018-09-18] MEDS ORDERED: DARBEPOETIN ESRD 100 MCG/0.5ML SYR IVP PRN (14:00)
[2018-09-23] MEDS ORDERED: VANCOMYCIN HCL IVPB ONE (18:00)
[2018-09-23] MEDS ORDERED: NS 0.9% IVPB ONE (18:00)
[2018-09-23] MEDS ORDERED: ADD IVPB ONE (18:00)
[2018-10-07 15:54] LABS: PLATELET COUNT, AUTOMATED 283 K/uL (150-450)
[2018-10-07] MEDS: ALTEPLASE RECOMB 2 MG VIAL IV PRN (19:27)
[2018-10-07] MEDS: WATER STERILE 10 ML VIAL IV PRN (19:27)
[2018-10-09] MEDS ORDERED: DARBEPOETIN ESRD 100 MCG/0.5ML SYR IVP PRN
[2018-10-16 15:56] LABS: PLATELET COUNT, AUTOMATED 361 K/uL (150-450)
[2018-10-18] MEDS: DARBEPOETIN ESRD 100 MCG/0.5ML SYR IVP PRN (17:00)
[2018-10-23] MEDS ORDERED: HEPARIN (PORCINE) 1000 UNIT/ML (DIALYSIS) ONE (11:45)
[2018-10-25] MEDS: HEPARIN (PORCINE) 1000 UNIT/ML (DIALYSIS) IVP PRN (15:24)
[2018-10-25] MEDS: DARBEPOETIN ESRD 100 MCG/0.5ML SYR IVP PRN (16:14)
[2018-10-28] MEDS: HEPARIN (PORCINE) 1000 UNIT/ML (DIALYSIS) IVP PRN (15:45)
[2018-10-30] MEDS: HEPARIN (PORCINE) 1000 UNIT/ML (DIALYSIS) IVP PRN (06:40)
[2018-11-01] MEDS: HEPARIN (PORCINE) 1000 UNIT/ML (DIALYSIS) IVP PRN (15:40)
[2018-11-01] MEDS: DARBEPOETIN ESRD 100 MCG/0.5ML SYR IVP PRN (16:16)
[2018-11-04] MEDS: HEPARIN (PORCINE) 1000 UNIT/ML (DIALYSIS) IVP PRN (09:36)
[2018-11-06] MEDS: HEPARIN (PORCINE) 1000 UNIT/ML (DIALYSIS) IVP PRN (09:38)
[2018-11-06] MEDS ORDERED: RIT100I IV (15:03)
[2018-11-08] MEDS: HEPARIN (PORCINE) 1000 UNIT/ML (DIALYSIS) IVP PRN (15:12)
[2018-11-08] MEDS: DARBEPOETIN ESRD 100 MCG/0.5ML SYR IVP PRN (15:34)
[2018-11-11] MEDS: HEPARIN (PORCINE) 1000 UNIT/ML (DIALYSIS) IVP PRN (15:28)
[2018-11-13] MEDS: HEPARIN (PORCINE) 1000 UNIT/ML (DIALYSIS) IVP PRN (11:20)
[2018-11-15] MEDS: HEPARIN (PORCINE) 1000 UNIT/ML (DIALYSIS) IVP PRN (14:51)
[2018-11-18] MEDS: HEPARIN (PORCINE) 1000 UNIT/ML (DIALYSIS) IVP PRN (15:29)
[2018-11-20] MEDS: HEPARIN (PORCINE) 1000 UNIT/ML (DIALYSIS) IVP PRN (10:27)
[2018-11-22] MEDS: HEPARIN (PORCINE) 1000 UNIT/ML (DIALYSIS) IVP PRN (06:23)
[2018-11-25] MEDS: HEPARIN (PORCINE) 1000 UNIT/ML (DIALYSIS) IVP PRN (14:04)
[2018-11-27] MEDS: HEPARIN (PORCINE) 1000 UNIT/ML (DIALYSIS) IVP PRN (14:00)
[2018-11-29] MEDS: HEPARIN (PORCINE) 1000 UNIT/ML (DIALYSIS) IVP PRN (15:33)
[2018-12-02] MEDS: HEPARIN (PORCINE) 1000 UNIT/ML (DIALYSIS) IVP PRN (15:35)
[2018-12-04] MEDS: HEPARIN (PORCINE) 1000 UNIT/ML (DIALYSIS) IVP PRN (15:38)
[2018-12-04 16:30] LABS: PLATELET COUNT, AUTOMATED 288 K/uL (150-450)
[2018-12-06] MEDS: HEPARIN (PORCINE) 1000 UNIT/ML (DIALYSIS) IVP PRN (06:06)
[2018-12-06] MEDS ORDERED: SEVE800T16 PO (08:13)
[2018-12-06] MEDS ORDERED: PROM-110 PO (08:14)
[2018-12-09] MEDS: HEPARIN (PORCINE) 1000 UNIT/ML (DIALYSIS) IVP PRN (15:36)
[2018-12-11] MEDS: HEPARIN (PORCINE) 1000 UNIT/ML (DIALYSIS) IVP PRN (11:53)
[2018-12-11] MEDS: SODIUM FERRIC GLUC 62.5 MG/5ML IVP PRN (14:01)
[2018-12-12] MEDS ORDERED: IPRA15SP7 NS (16:15)
[2018-12-13] MEDS: HEPARIN (PORCINE) 1000 UNIT/ML (DIALYSIS) IVP PRN (06:04)
[2018-12-13] MEDS: ALTEPLASE RECOMB 2 MG VIAL IV PRN (10:17)
[2018-12-13] MEDS: WATER STERILE 10 ML VIAL IV PRN (10:17)
[2018-12-16] MEDS: HEPARIN (PORCINE) 1000 UNIT/ML (DIALYSIS) IVP PRN (15:39)
[2018-12-16] MEDS: SODIUM FERRIC GLUC 62.5 MG/5ML IVP PRN (16:50)
[2018-12-20] MEDS: HEPARIN (PORCINE) 1000 UNIT/ML (DIALYSIS) IVP PRN (15:34)
[2018-12-25] MEDS: HEPARIN (PORCINE) 1000 UNIT/ML (DIALYSIS) IVP PRN (15:39)
[2018-12-25] MEDS: SODIUM FERRIC GLUC 62.5 MG/5ML IVP PRN (16:05)
[2018-12-25 16:57] LABS: PLATELET COUNT, AUTOMATED 268 K/uL (150-450)
[2018-12-27] MEDS ORDERED: DARBEPOETIN ESRD 25 MCG/ML IVP PRN
[2018-12-27] MEDS: HEPARIN (PORCINE) 1000 UNIT/ML (DIALYSIS) IVP PRN (15:46)
[2018-12-30] MEDS: HEPARIN (PORCINE) 1000 UNIT/ML (DIALYSIS) IVP PRN (15:37)
== END 2019-01-11 ==
LOC: DIAL
PROVIDERS: ATTEND Internal Medicine Nephrology
DX: N18.6 End stage renal disease (principal); M31.7 Microscopic polyangiitis; K65.9 Peritonitis, unspecified; J47.9 Bronchiectasis, uncomplicated; D72.819 Decreased white blood cell count, unspecified; D63.1 Anemia in chronic kidney disease; K31.84 Gastroparesis; E78.5 Hyperlipidemia, unspecified; R05 Cough; K21.9 Gastro-esophageal reflux disease without esophagitis; T85.71XA Infection and inflammatory reaction due to peritoneal dialysis catheter, initial encounter; E87.6 Hypokalemia; N83.209 Unspecified ovarian cyst, unspecified side; Z94.0 Kidney transplant status; Z99.2 Dependence on renal dialysis; Z79.899 Other long term (current) drug therapy; Z72.89 Other problems related to lifestyle
CPT/HCPCS: 80202; 82040; 82108; 82247; 82310; 82374; 82465; 82565; 82607; 82728; 82746; 82947; 83540; 83550; 83970; 84075; 84100; 84132; 84295; 84460; 84478; 84520; 85018; 85025; 86580; 86706; 87340; 90999; A4216; A4657; G0472; J0882; J1644; J2916; J2997; 86803

== ENCOUNTER 2018-08-30 20:19 | Emergency (ER) | payer MEDICARE, MEDICAID ==
[~2018-08-30 20:19] MED LIST changes: -MELA5TAB3 PO; +MELA5TAB6 PO
--- NOTE | 2018-08-30 20:37 | ER Report ---
History and Physical Time Seen By MD: 20:37 Hx. of Stated Complaint: PATIENT REPORTS LEFT LOWER ABDOMINAL PAIN THAT RADIATES TO BACK HPI/ROS CHIEF COMPLAINT: abdominal pain HISTORY OF PRESENT ILLNESS: This is a 28 year old female. I took care of the patient here in the ER for right lower abdominal pain a couple of weeks ago. We ended up transfering to [facility] because of her peritoneal dialysis, and concern for acute appendicitis. They did further workup, and ended up treating for acute peritonitis with intraperitoneal Vancomycin. She was just released from the hospital 3 days ago. Switched to hemodialysis. While in the hospital in [place], she reports that the pain switched from right side to the left side. The pain would worsen with eating anything with fat or protein. She seems to do better with simple carbohydrates. She had a colonoscopy and an EGD while in [place] which were normal. They also performed extensive imaging and were not able to determine the cause. I was able to review notes from [place] and indicated that they had tried TPN as well as NG feedings, but the patient pulled out her NG tube and wanted to go home and try and force herself to eat. She is still having pain and trouble eating. No fevers or chills. Pain is always present, but worsens with eating. She is having bowel movements regularly. She is anuric from her ESRD. Also with a chronic cough, seems worse recently. Allergies: Coded Allergies: fentanyl (Unverified Allergy, Severe, SEIZURES, 08/30/18) vancomycin (Unverified Allergy, Unknown, ORAL SWELLING, 08/30/18) levofloxacin (Verified Adverse Reaction, Intermediate, Severe arthralgia, 08/30/18) meperidine (Unverified Adverse Reaction, Unknown, HALLUCINATIONS, 08/30/18) morphine (Unverified Adverse Reaction, Unknown, ITCHING, 08/30/18) Home Meds Active Scripts Hyoscyamine Sulfate (HYOSCYAMINE SULFATE) 0.125 Mg Tablet, 0.125 MG PO BID, #10 TAB 0 Refills Prov:JUNIOR BAE MD 08/31/18 Reported Medications Promethazine Hcl (PROMETHAZINE HCL) 25 Mg Tablet, 25 MG PO Q8H PRN for PRN, TAB 07/05/18 Albuterol Sulfate 0.083% (ALBUTEROL SULFATE 0.083%) 2.5 Mg/3 Ml Vial.neb, 2.5 MG INH BID, INH 07/05/18 Topiramate (TOPAMAX) 100 Mg Tablet, 150 MG PO BID 12/28/17 Ondansetron Hcl (ZOFRAN) 4 Mg Tablet, 2 TAB PO PRN, TAB 12/28/17 Melatonin (MELATONIN) 5 Mg Tablet, 1 TAB PO QHS 12/28/17 Sevelamer Carbonate (RENVELA) 800 Mg Tablet, 1 TAB PO WITH MEALS 12/28/17 Omeprazole (OMEPRAZOLE) 40 Mg Capsule.dr, 1 CAP PO BID, CAP 12/28/17 Azathioprine (IMURAN) 50 Mg Tablet, 3 TAB PO QDAY 12/28/17 Discontinued Reported Medications Vancomycin In Dextrose,Iso-Osm (VANCOMYCIN 750 MG/150 ML BAG) Unknown Strength Frosahnnonpiggy, IV 07/05/18 Reviewed Nurses Notes: Yes Hx Smoking: No Smoking Status: Never Smoker Constitutional Vital Sign - Last 24 Hours 08/30/18 20:25 Temp 97.7 Pulse 112 Resp 24 B/P (MAP) 131/95 Pulse Ox 93 O2 Delivery Room Air Intake and Output 08/30/18 08/30/18 08/31/18 15:00 23:00 07:00 Intake Total 300 ml Balance 300 ml Physical Exam General Appearance: The patient is alert. No acute distress. Non-toxic in appearance. Eyes: Pupils are equal, round. No pallor, injection or icterus. ENT: Mucous membranes are moist. Respiratory: Lungs are clear to auscultation. Cardiovascular: Regular rate and rhythm. No murmurs, gallops or rubs. Normal capillary refill. No edema. Gastrointestinal: abdomen is soft, tender in left side and into epigastric area. Nondistended. Guarding, but without rebound. No masses or organomegaly. Normal active bowel sounds. No costovertebral angle tenderness with percussion. Neurological: Alert and oriented x3. No focal neurologic deficits Skin: Warm and dry. No rashes. DIFFERENTIAL DIAGNOSIS: After history and physical exam, differential diagnosis was considered for Abdominal pain, worse with eating, will check labs, urinalysis, and CT scan and provide some pain medication. Medical Decision Making Data Points Result Diagram: 08/30/18202908/30/182029 Laboratory Hematology Test 08/30/18 20:30 Red Blood Count 3.55 M/uL (4.17-5.56) Mean Corpuscular Volume 91.5 fL (80.0-96.0) Mean Corpuscular Hemoglobin 31.2 pg (26.0-33.0) Mean Corpuscular Hemoglobin Concent 34.1 g/dL (32.0-36.0) Red Cell Distribution Width 16.1 % (11.5-14.5) Mean Platelet Volume 7.9 fL (7.2-11.1) Neutrophils (%) (Auto) 43.7 % (39.4-72.5) Lymphocytes (%) (Auto) 36.8 % (17.6-49.6) Monocytes (%) (Auto) 2.8 % (4.1-12.4) Eosinophils (%) (Auto) 12.7 % (0.4-6.7) Basophils (%) (Auto) 4.0 % (0.3-1.4) Nucleated RBC Relative Count (auto) 0.3 /100WBC Neutrophils # (Auto) 1.0 K/uL (2.0-7.4) Lymphocytes # (Auto) 0.9 K/uL (1.3-3.6) Monocytes # (Auto) 0.1 K/uL (0.3-1.0) Eosinophils # (Auto) 0.3 K/uL (0.0-0.5) Basophils # (Auto) 0.1 K/uL (0.0-0.1) Nucleated RBC Absolute Count (auto) 0.01 K/uL Peripheral Blood Smear Yes Y/N Sodium Level 138 mmol/L (137-145) Potassium Level 3.7 mmol/L (3.5-5.0) Chloride Level 98 mmol/L (98-107) Carbon Dioxide Level 29 mmol/L (22-31) Blood Urea Nitrogen 4 mg/dl (7-18) Creatinine 3.10 mg/dl (0.52-1.04) Glomerular Filtration Rate Calc 17.9 Random Glucose 101 mg/dl (75-110) Lactate 2.4 mmol/L (0.7-2.1) Calcium Level 9.3 mg/dl (8.4-10.2) Total Bilirubin 0.8 mg/dl (0.2-1.3) Aspartate Amino Transf (AST/SGOT) 22 U/L (0-35) Alanine Aminotransferase (ALT/SGPT) 12 U/L (0-56) Alkaline Phosphatase 134 U/L (0-126) Total Protein 7.0 g/dl (6.3-8.2) Albumin 3.9 g/dl (3.5-5.0) Amylase Level 58 U/L (0-110) Lipase 93 U/L (23-300) Chemistry Test 08/30/18 20:30 White Blood Count 2.4 k/uL (4.5-11.0) Red Blood Count 3.55 M/uL (4.17-5.56) Hemoglobin 11.1 g/dL (12.0-16.0) Hematocrit 32.5 % (34.0-47.0) Mean Corpuscular Volume 91.5 fL (80.0-96.0) Mean Corpuscular Hemoglobin 31.2 pg (26.0-33.0) Mean Corpuscular Hemoglobin Concent 34.1 g/dL (32.0-36.0) Red Cell Distribution Width 16.1 % (11.5-14.5) Platelet Count 445 K/uL (150-450) Mean Platelet Volume 7.9 fL (7.2-11.1) Neutrophils (%) (Auto) 43.7 % (39.4-72.5) Lymphocytes (%) (Auto) 36.8 % (17.6-49.6) Monocytes (%) (Auto) 2.8 % (4.1-12.4) Eosinophils (%) (Auto) 12.7 % (0.4-6.7) Basophils (%) (Auto) 4.0 % (0.3-1.4) Nucleated RBC Relative Count (auto) 0.3 /100WBC Neutrophils # (Auto) 1.0 K/uL (2.0-7.4) Lymphocytes # (Auto) 0.9 K/uL (1.3-3.6) Monocytes # (Auto) 0.1 K/uL (0.3-1.0) Eosinophils # (Auto) 0.3 K/uL (0.0-0.5) Basophils # (Auto) 0.1 K/uL (0.0-0.1) Nucleated RBC Absolute Count (auto) 0.01 K/uL Peripheral Blood Smear Yes Y/N Glomerular Filtration Rate Calc 17.9 Lactate 2.4 mmol/L (0.7-2.1) Calcium Level 9.3 mg/dl (8.4-10.2) Total Bilirubin 0.8 mg/dl (0.2-1.3) Aspartate Amino Transf (AST/SGOT) 22 U/L (0-35) Alanine Aminotransferase (ALT/SGPT) 12 U/L (0-56) Alkaline Phosphatase 134 U/L (0-126) Total Protein 7.0 g/dl (6.3-8.2) Albumin 3.9 g/dl (3.5-5.0) Amylase Level 58 U/L (0-110) Lipase 93 U/L (23-300) EKG/Imaging Imaging CT ABDOMEN PELVIS W/O CON HISTORY: Left-sided abdominal pain. History of multiple abdominal surgeries. COMPARISON: 08/12/2018 and 06/16/2018. TECHNIQUE: Axial images were obtained from the lung bases through the symphysis pubis without intravenous contrast. Sagittal and coronal reformats were performed. One of the following dose optimization techniques was utilized in the performance of this exam: Automated exposure control; adjustment of the mA and/or kV according to the patient's size; or use of an iterative reconstruction technique. Specific details can be referenced in the facility's radiology CT exam operational policy. CONTRAST: None. FINDINGS: Lower chest: There are new patchy alveolar opacities in the lower lobes bilaterally, left greater than right. Blood within the heart is less dense than the ventricular septum. Liver: Normal. Gallbladder/biliary: There is material layering within the gallbladder that is of greater density posteriorly. This may be biliary sludge versus non-shadowing calculi. No gallbladder wall thickening. No intrahepatic or extrahepatic ductal dilation. Pancreas: Normal. Spleen: Normal. Adrenals: Normal. Kidneys/ureters/bladder: Stable atrophy of the bilateral kidneys. No hydronephrosis. Ureters are normal. The bladder is decompressed. GI/mesentery/peritoneal cavity: There is no bowel obstruction. There is no wall thickening or pericolonic stranding. The appendix is normal. No free air. There is a small amount of peritoneal free fluid, similar to prior study. There is a peritoneal dialysis catheter. Vessels: No atherosclerotic disease. No aneurysm. Nodes: Normal. Pelvis: There is an IUD within the uterus in expected location. There are antonio ateral ovarian follicles. There are pelvic phleboliths. Bones/vertebra/soft tissues: There is mild degenerative change of the spine. There is a moderate to large central and right central disc protrusion at L3-4 (image 76 series 2). There is a small to moderate central disc protrusion at L4- 5 (image 86). There is a large central and right central disc protrusion at L5- S1 (image 96). Disc protrusions are unchanged. IMPRESSION: 1. No findings in the abdomen or pelvis to account for the patient's symptoms. 2. Small amount of peritoneal fluid is compatible with peritoneal dialysis. 3. Density of blood within the heart is less then that of the ventricular septum, which suggests anemia. 4. Patchy alveolar opacities in both lower lobes may be due to atelectasis versus pneumonia. Report Dictated By: Shobha Carlin at 08/30/2018 11:18 PM ED Course/Re-evaluation Clinical Indication for ER IV: Hydration, IV Access ED Course CT scan was negative for acute problems, although some bilateral atelectasis versus infiltrates in base of lungs. No findings to explain the abdominal pain. No sign of obstruction. With her surgery, cannot rule out adhesions. Discussed findings with the patient and discussed options. We will try Hyoscyamine to see if this helps. The patient and asked about possible use of lidocaine to help with pain and bowel motility. Would need to be careful with amounts, but gave a mixture of viscous lidocaine and Benadryl liquid to use as a trial over the next couple of days. Also added Azithromycin to cover for possible pneumonia with her cough and the changes in her lungs. Recommended simples carbs and clear liquids over the weekend, and follow-up with primary care for specialty referral for further work on the diet and nutrition aspects. She could also have problems with adhesions without obstruction, given her previous surgeries and further discussion with a surgeon regarding possible interventions. Decision to Disposition Date: Aug 31, 2018 Decision to Disposition Time: 00:09 Depart Departure Latest Vital Signs Vital Signs Date Time Temp Pulse Resp B/P (MAP) Pulse Ox O2 Delivery O2 Flow Rate FiO2 08/30/18 20:25 97.7 112 24 131/95 93 Room Air Impression: Primary Impression: Intractable abdominal pain Condition: Improved Disposition: HOME OR SELF-CARE Referrals: SANDY ART MD (PCP) New Scripts Hyoscyamine Sulfate (HYOSCYAMINE SULFATE) 0.125 Mg Tablet 0.125 MG PO BID, #10 TAB 0 Refills Prov: JUNIOR BAE MD 08/31/18 Patient Instructions: Abdominal Pain (ED) Additional Instructions: Follow-up with Dr. Art for further workup regarding you abdominal pain and specialty referral. Trial of oral use of viscous lidocaine with liquid benadryl. You can take 5ml of the liquid every 6 hours to see if this helps the abdominal pain. This will be a temporary measure to see if it will help. Do not take more of this as the level of lidocaine can build up over time and can be dangerous. Trial of oral medicine to reduce bowel spasming, Trial of hyoscyamine 0.125mg, twice a day as needed for abdominal pain. Keep with simple carbohydrates and clear liquids. Further follow-up as an outp atient for nutritional treatments and possible further gastroenterology evaluation. JUNIOR BAE MD Aug 30, 2018 20:37
[2018-08-30] MEDS ORDERED: LORazepam 2 MG/ML VIAL IVP ONE (20:55)
[2018-08-30] MEDS ORDERED: NS(*) 0.9% 1000 ML BAG 1,000 ML IV ONE (20:55)
[2018-08-30] MEDS ORDERED: diphenhydrAMINE 50 MG/ML VIAL IVP ONE (20:55)
[2018-08-30] MEDS ORDERED: HYDROMORPHONE HCL 1 MG/ML SYRINGE IVP ONE ×2 (20:55→22:10)
[2018-08-30 21:04] LABS: PLATELET COUNT, AUTOMATED 445 K/uL (150-450)
--- NOTE | 2018-08-30 23:35 | RADIOLOGY IMAGING REPORT ---
[place] [facility] [place] Celina [place] : 1990 MR: [id number] V: [id number] EXAM DATE: ORDERING PHYSICIAN: JUNIOR BAE TECHNOLOGIST: Location: [facility] [place] Patient: Celina Ramos : 1990 Visit/Account:[id number] Date of Sevice: 08/30/2018 CT ABDOMEN PELVIS W/O CON HISTORY: Left-sided abdominal pain. History of multiple abdominal surgeries. COMPARISON: 08/12/2018 and 06/16/2018. TECHNIQUE: Axial images were obtained from the lung bases through the symphysis pubis without intrave nous contrast. Sagittal and coronal reformats were performed. One of the following dose optimization techniques was utilized in the performance of this exam: Autom ated exposure control; adjustment of the mA and/or kV according to the patient's size; or use of an i terative reconstruction technique. Specific details can be referenced in the facility's radiology CT exam operational policy. CONTRAST: None. FINDINGS: Lower chest: There are new patchy alveolar opacities in the lower lobes bilaterally, left greater edilberto n right. Blood within the heart is less dense than the ventricular septum. Liver: Normal. Gallbladder/biliary: There is material layering within the gallbladder that is of greater density pos teriorly. This may be biliary sludge versus non-shadowing calculi. No gallbladder wall thickening. No intrahepatic or extrahepatic ductal dilation. Pancreas: Normal. Spleen: Normal. Adrenals: Normal. Kidneys/ureters/bladder: Stable atrophy of the bilateral kidneys. No hydronephrosis. Ureters are norm al. The bladder is decompressed. GI/mesentery/peritoneal cavity: There is no bowel obstruction. There is no wall thickening or pericol onic stranding. The appendix is normal. No free air. There is a small amount of peritoneal free fluid , similar to prior study. There is a peritoneal dialysis catheter. Vessels: No atherosclerotic disease. No aneurysm. Nodes: Normal. Pelvis: There is an IUD within the uterus in expected location. There are bilateral ovarian follicles . There are pelvic phleboliths. Bones/vertebra/soft tissues: There is mild degenerative change of the spine. There is a moderate to l arge central and right central disc protrusion at L3-4 (image 76 series 2). There is a small to moder ate central disc protrusion at L4-5 (image 86). There is a large central and right central disc protr usion at L5-S1 (image 96). Disc protrusions are unchanged. IMPRESSION: 1. No findings in the abdomen or pelvis to account for the patient's symptoms. 2. Small amount of peritoneal fluid is compatible with peritoneal dialysis. 3. Density of blood within the heart is less then that of the ventricular septum, which suggests anem ia. 4. Patchy alveolar opacities in both lower lobes may be due to atelectasis versus pneumonia. Report Dictated By: Shobha Carlin at 08/30/2018 11:18 PM Report E-Signed By: Shobha Carlin at 08/30/2018 11:31 PM WSN:[id number]
[2018-08-31] MEDS ORDERED: AZITHROMYCIN 250 MG TAB PO ONE (00:10)
[2018-08-31] MEDS ORDERED: LIDOCAINE 2% VISC SLN 15ML UDC PO ONE (00:10)
[2018-08-31] MEDS ORDERED: LORazepam 2 MG/ML VIAL IVP ONE (00:10)
[2018-08-31] MEDS ORDERED: HYDROMORPHONE HCL 1 MG/ML SYRINGE IVP ONE (00:10)
[2018-08-31] MEDS ORDERED: HYOS0.1225 PO (00:15)
[2018-08-31] MEDS ORDERED: ONDANSETRON 4 MG/2 ML VIAL IVP ONE (00:35)
[2018-08-31 00:40] VITALS: BP 116/78
== END 2018-08-31 00:52 | disposition home or self-care (01) ==
LOC: ER 20:23
DX: R10.32 Left lower quadrant pain (principal)
CPT/HCPCS: 74176; 82150; 83605; 83690; 85025; 96361; 96374; 96375; 96376; 99284; A9270; J1170; J1200; J2060; J2405; J7030; Q0144; Q0163; 82040; 82247; 82310; 82374; 82435; 82565; 82947; 84075; 84132; 84155; 84295; 84450; 84460; 84520

== ENCOUNTER 2018-09-14 04:20 | Emergency (ER) | payer MEDICARE, MEDICAID ==
[2018-09-14] MEDS ORDERED: ONDANSETRON 4 MG/2 ML VIAL ONE (04:34)
[2018-09-14] MEDS ORDERED: NS(*) 0.9% 1000 ML BAG 1,000 ML ONE (04:34)
--- NOTE | 2018-09-14 04:40 | ER Report ---
History and Physical Time Seen By MD: 04:40 Hx. of Stated Complaint: PT REPORTS ONSET OF N/V/D AFTER GOING TO SLEEP TONIGHT. HPI/ROS CHIEF COMPLAINT: Abdominal pain, nausea and vomiting HISTORY OF PRESENT ILLNESS: This is a 28-year-old female. She started having severe abdominal pain tonight, as well as some diarrhea and some nausea and vomiting. She has a history of an uric kidney failure with hemodialysis at this time. Recently was on peritoneal dialysis but was switched to hemodialysis after a hospitalization for acute peritonitis and abdominal pain that was never fully diagnosed. She had her normal hemodialysis earlier today, went home, and then had onset of pain. It is time for her menses and she has had a problem with pain associated with ovarian cysts in the past that has happened around her menses. Last time she had severe abdominal pain like this was about a month ago. She denies any fevers or chills associated with this. There is no blood in the stool. No melena. Nausea and vomiting of anything she tries to eat or drink. She has been having some chronic cough for the last month or slightly longer. During our last visit, she had a CT scan that showed some changes in both lower lungs that could represent pneumonitis versus atelectasis. She was supposed to receive some a azithromycin at that time but for some reason this was not available at the pharmacy, so she never did take this. This was about 2 weeks ago. She is continuing to have cough but again no fevers or chills at this time. She is on immunosuppression. Allergies: Coded Allergies: fentanyl (Unverified Allergy, Severe, SEIZURES, 09/14/18) vancomycin (Unverified Allergy, Unknown, ORAL SWELLING, 09/14/18) levofloxacin (Verified Adverse Reaction, Intermediate, Severe arthralgia, 09/14/18) meperidine (Unverified Adverse Reaction, Unknown, HALLUCINATIONS, 09/14/18) morphine (Unverified Adverse Reaction, Unknown, ITCHING, 09/14/18) Home Meds Active Scripts Hyoscyamine Sulfate (HYOSCYAMINE SULFATE) 0.125 Mg Tablet, 0.125 MG PO BID, #10 TAB 0 Refills Prov:JUNIOR BAE MD 08/31/18 Reported Medications Lidocaine HCl VISCOUS 2% (Lidocaine Viscous) 2 % Solution, 5 ML PO TID PRN for pain 09/02/18 Promethazine Hcl (PROMETHAZINE HCL) 25 Mg Tablet, 25 MG PO Q8H PRN for PRN, TAB 07/05/18 Albuterol Sulfate 0.083% (ALBUTEROL SULFATE 0.083%) 2.5 Mg/3 Ml Vial.neb, 2.5 MG INH BID, INH 07/05/18 Topiramate (TOPAMAX) 100 Mg Tablet, 150 MG PO BID 12/28/17 Ondansetron Hcl (ZOFRAN) 4 Mg Tablet, 2 TAB PO PRN, TAB 12/28/17 Melatonin (MELATONIN) 5 Mg Tablet, 1 TAB PO QHS 12/28/17 Sevelamer Carbonate (RENVELA) 800 Mg Tablet, 1 TAB PO WITH MEALS 12/28/17 Omeprazole (OMEPRAZOLE) 40 Mg Capsule.dr, 1 CAP PO BID, CAP 12/28/17 Azathioprine (IMURAN) 50 Mg Tablet, 2 TAB PO QDAY 12/28/17 Reviewed Nurses Notes: Yes Hx Smoking: No Smoking Status: Never Smoker Constitutional Physical Exam General Appearance: The patient is alert. Acute distress due to pain. Non- toxic in appearance. Eyes: Pupils are equal, round. No pallor, injection or icterus. ENT: Mucous membranes are moist. Normal oral mucosa. Posterior oropharynx is normal. Neck: Supple and non tender. Respiratory: Lungs are clear to auscultation. Cardiovascular: Regular rate and rhythm. No murmurs, gallops or rubs. Normal c apillary refill. Gastrointestinal: Abdomen is soft, tender diffusely. Nondistended. Normal active bowel sounds. No costovertebral angle tenderness with percussion. Neurological: Alert and oriented x3. Skin: Warm and dry. No rashes. Musculoskeletal: Extremities are nontender. No tenderness in palpation of the back and spine. DIFFERENTIAL DIAGNOSIS: After history and physical exam, differential diagnosis was considered for abdominal pain including but not limited to colitis, gastroenteritis and urinary tract infection. With her history of ovarian cysts, this is also a possibility. Also with her chronic cough, further workup of this will be done tonight as well. Medical Decision Making Data Points Laboratory Hematology Test 09/14/18 04:42 Red Blood Count 3.63 M/uL (4.17-5.56) Mean Corpuscular Volume 94.0 fL (80.0-96.0) Mean Corpuscular Hemoglobin 31.7 pg (26.0-33.0) Mean Corpuscular Hemoglobin Concent 33.7 g/dL (32.0-36.0) Red Cell Distribution Width 17.7 % (11.5-14.5) Mean Platelet Volume 8.6 fL (7.2-11.1) Neutrophils (%) (Auto) % (39.4-72.5) Lymphocytes (%) (Auto) % (17.6-49.6) Monocytes (%) (Auto) % (4.1-12.4) Eosinophils (%) (Auto) % (0.4-6.7) Basophils (%) (Auto) % (0.3-1.4) Nucleated RBC Relative Count (auto) /100WBC Neutrophils # (Auto) K/uL (2.0-7.4) Lymphocytes # (Auto) K/uL (1.3-3.6) Monocytes # (Auto) K/uL (0.3-1.0) Eosinophils # (Auto) K/uL (0.0-0.5) Basophils # (Auto) K/uL (0.0-0.1) Nucleated RBC Absolute Count (auto) K/uL Neutrophils % (Manual) 64 % (39.4-72.5) Band Neutrophils % 4 % Lymphocytes % (Manual) 14 % (17.6-49.6) Monocytes % (Manual) 12 % (4.1-12.4) Eosinophils % (Manual) 2 % (0.4-6.7) Basophils % (Manual) 2 % (0.3-1.4) Metamyelocytes % 2 % Peripheral Blood Smear Yes Y/N Sodium Level 138 mmol/L (137-145) Potassium Level 3.8 mmol/L (3.5-5.0) Chloride Level 103 mmol/L (98-107) Carbon Dioxide Level 28 mmol/L (22-31) Blood Urea Nitrogen 7 mg/dl (7-18) Creatinine 5.20 mg/dl (0.52-1.04) Glomerular Filtration Rate Calc 9.8 Random Glucose 128 mg/dl (75-110) Calcium Level 9.0 mg/dl (8.4-10.2) Total Bilirubin 1.1 mg/dl (0.2-1.3) Aspartate Amino Transf (AST/SGOT) 17 U/L (0-35) Alanine Aminotransferase (ALT/SGPT) 14 U/L (0-56) Alkaline Phosphatase 97 U/L (0-126) Total Protein 6.2 g/dl (6.3-8.2) Albumin 3.5 g/dl (3.5-5.0) Amylase Level 85 U/L (0-110) Lipase 62 U/L (23-300) Human Chorionic Gonadotropin, Qual Negative (NEGATIVE) Chemistry Test 09/14/18 04:42 White Blood Count 4.4 k/uL (4.5-11.0) Red Blood Count 3.63 M/uL (4.17-5.56) Hemoglobin 11.5 g/dL (12.0-16.0) Hematocrit 34.1 % (34.0-47.0) Mean Corpuscular Volume 94.0 fL (80.0-96.0) Mean Corpuscular Hemoglobin 31.7 pg (26.0-33.0) Mean Corpuscular Hemoglobin Concent 33.7 g/dL (32.0-36.0) Red Cell Distribution Width 17.7 % (11.5-14.5) Platelet Count 351 K/uL (150-450) Mean Platelet Volume 8.6 fL (7.2-11.1) Neutrophils (%) (Auto) % (39.4-72.5) Lymphocytes (%) (Auto) % (17.6-49.6) Monocytes (%) (Auto) % (4.1-12.4) Eosinophils (%) (Auto) % (0.4-6.7) Basophils (%) (Auto) % (0.3-1.4) Nucleated RBC Relative Count (auto) /100WBC Neutrophils # (Auto) K/uL (2.0-7.4) Lymphocytes # (Auto) K/uL (1.3-3.6) Monocytes # (Auto) K/uL (0.3-1.0) Eosinophils # (Auto) K/uL (0.0-0.5) Basophils # (Auto) K/uL (0.0-0.1) Nucleated RBC Absolute Count (auto) K/uL Neutrophils % (Manual) 64 % (39.4-72.5) Band Neutrophils % 4 % Lymphocytes % (Manual) 14 % (17.6-49.6) Monocytes % (Manual) 12 % (4.1-12.4) Eosinophils % (Manual) 2 % (0.4-6.7) Basophils % (Manual) 2 % (0.3-1.4) Metamyelocytes % 2 % Peripheral Blood Smear Yes Y/N Glomerular Filtration Rate Calc 9.8 Calcium Level 9.0 mg/dl (8.4-10.2) Total Bilirubin 1.1 mg/dl (0.2-1.3) Aspartate Amino Transf (AST/SGOT) 17 U/L (0-35) Alanine Aminotransferase (ALT/SGPT) 14 U/L (0-56) Alkaline Phosphatase 97 U/L (0-126) Total Protein 6.2 g/dl (6.3-8.2) Albumin 3.5 g/dl (3.5-5.0) Amylase Level 85 U/L (0-110) Lipase 62 U/L (23-300) Human Chorionic Gonadotropin, Qual Negative (NEGATIVE) EKG/Imaging Imaging COMPUTED TOMOGRAPHY CHEST, ABDOMEN AND PELVIS WITHOUT INTRAVENOUS CONTRAST DATE OF EXAM: 09/14/2018 4:46 AM. INDICATION: Cough, abdominal pain, nausea/vomiting/diarrhea. COMPARISON: CT abdomen and pelvis 08/30/2018 and previous. TECHNIQUE: Chest, abdomen and pelvis CT performed without contrast. Sagittal and coronal reconstructions were performed. One of the following dose opt imization techniques was utilized in the performance of this exam: automated exposure control; adjustment of the mA and/or kV according to patient size; or use of iterative reconstruction technique. Specific details can be referenced in the facility?s radiology CT exam operational policy. FINDINGS: CHEST: Thyroid: Normal. Thoracic inlet: No adenopathy. Heart and great vessels: Heart size is normal. No pericardial effusion. Dilated ascending aorta measuring 3.7 cm in diameter. Left IJ central venous catheter terminating in the right atrium. Mediastinum and driss: Mildly prominent mediastinal lymph nodes similar to p rior. Lungs and pleura: Tree-in-bud nodularity in the lung bases, similar to 08/30/2018 in the left lower lobe and increased in the right lower lobe. Breast and axilla: No adenopathy. ABDOMEN AND PELVIS: Liver and hepatic vasculature: No acute abnormality or focal lesion. Gallbladder and bile ducts: Normal. Spleen: Normal. Pancreas: Normal. Adrenals: Normal. Kidneys, ureters and bladder: Markedly atrophic kidneys. Retroperitoneum and aorta: Nonaneurysmal aorta. No retroperitoneal adenopathy. GI tract, mesentery and peritoneum: Peritoneal dialysis catheter terminates along the inferior margin of the liver. A small volume of free fluid in the abdomen and pelvis is presumably related to dialysis. No evidence of obstruction. No pneumatosis or pneumoperitoneum. Diffuse fatty infiltration of the colon may indicate chronic/remote colitis. The sigmoid colon and rectum are fluid-filled. Uterus and adnexa: 2 left adnexal cyst, measuring 3.2 x 2.7 and 2.9 x 2.3 cm. No definite evidence of associated complication. IUD in place. Bones and soft tissues: No acute abnormality or suspicious lesion. IMPRESSION: 1. Bilateral lower lobe tree-in-bud nodularity, increased on the right compared to 08/30/2018. This is likely infectious/inflammatory. 2. Fluid-filled sigmoid colon and rectum could indicate infectious or inflammatory colitis/diarrheal illness. 3. Left adnexal cyst measuring 3.2 and 2.9 cm, possibly functional. No definite evidence of associated complication. 4. Markedly atrophic [place] kidneys with peritoneal dialysis catheter in place. A small volume of free fluid in the pelvis is likely related to dialysis. Report Dictated By: Jeff Cobos MD at 09/14/2018 5:38 AM ED Course/Re-evaluation Clinical Indication for ER IV: IV Access ED Course Patient was given Dilaudid 0.5mg IV, Ativan 0.5mg IV and Benadryl 25mg IV for pain and nausea. She has Zofran 4mg IV for nausea. CT scan obtained, See above. Transvaginal Pelvic ultrasound done. Question Colitis versus ovarian cyst rupture given her history. Also chronic cough with worsening of her basilar lung changes that could be inflammatory or infectious. Repeated pain medicine x [address] Vega, hospitalist at [facility], who accepted the patient for transfer there. Cefapime 1g IV given. Decision to Disposition Date: September 14, 2018 Decision to Disposition Time: 07:48 Depart Departure Latest Vital Signs Impression: Primary Impression: Abdominal pain Additional Impressions: Colitis Pneumonia Hemodialysis patient History of ovarian cyst Condition: Condition Unchanged Disposition: XFER TO [facility] Referrals: SANDY ART MD (PCP) Problem Qualifiers Primary Impression: Abdominal pain Abdominal location: lower abdomen, unspecified Qualified Codes: R10.30 - Lower abdominal pain, unspecified Additional Impressions: Pneumonia Pneumonia type: due to unspecified organism Laterality: bilateral Lung location: lower lobe of lung Qualified Codes: J18.1 - Lobar pneumonia, unspecified organism JUNIOR BAE MD September 14, 2018 04:40
[2018-09-14] MEDS ORDERED: LORazepam 2 MG/ML VIAL IVP ONE (04:50)
[2018-09-14] MEDS ORDERED: diphenhydrAMINE 50 MG/ML VIAL IVP ONE (04:50)
[2018-09-14] MEDS ORDERED: HYDROMORPHONE HCL 1 MG/ML SYRINGE IVP ONE ×4 (04:50→08:05)
[2018-09-14 04:59] LABS: PLATELET COUNT, AUTOMATED 351 K/uL (150-450)
[2018-09-14] MEDS ORDERED: IOPAMIDOL 76% 150 ML INFUS BTL 0 ML ONE (05:18)
--- NOTE | 2018-09-14 05:58 | RADIOLOGY IMAGING REPORT ---
FACILITY: [facility] PATIENT NAME: Celina Ramos : 1990 MR: [id number] V: [id number] EXAM DATE: [id number] ORDERING PHYSICIAN: JUNIOR BAE TECHNOLOGIST: Location: [facility] [place] Patient: Celina Ramos : 1990 Visit/Account:[id number] Date of Sevice: 09/14/2018 COMPUTED TOMOGRAPHY CHEST, ABDOMEN AND PELVIS WITHOUT INTRAVENOUS CONTRAST DATE OF EXAM: 09/14/2018 4:46 AM. INDICATION: Cough, abdominal pain, nausea/vomiting/diarrhea. COMPARISON: CT abdomen and pelvis 08/30/2018 and previous. TECHNIQUE: Chest, abdomen and pelvis CT performed without contrast. Sagittal and coronal reconstruct ions were performed. One of the following dose optimization techniques was utilized in the performan ce of this exam: automated exposure control; adjustment of the mA and/or kV according to patient size ; or use of iterative reconstruction technique. Specific details can be referenced in the facility?s radiology CT exam operational policy. FINDINGS: CHEST: Thyroid: Normal. Thoracic inlet: No adenopathy. Heart and great vessels: Heart size is normal. No pericardial effusion. Dilated ascending aorta me asuring 3.7 cm in diameter. Left IJ central venous catheter terminating in the right atrium. Mediastinum and driss: Mildly prominent mediastinal lymph nodes similar to prior. Lungs and pleura: Tree-in-bud nodularity in the lung bases, similar to 08/30/2018 in the left lower l obe and increased in the right lower lobe. Breast and axilla: No adenopathy. ABDOMEN AND PELVIS: Liver and hepatic vasculature: No acute abnormality or focal lesion. Gallbladder and bile ducts: Normal. Spleen: Normal. Pancreas: Normal. Adrenals: Normal. Kidneys, ureters and bladder: Markedly atrophic kidneys. Retroperitoneum and aorta: Nonaneurysmal aorta. No retroperitoneal adenopathy. GI tract, mesentery and peritoneum: Peritoneal dialysis catheter terminates along the inferior katrin n of the liver. A small volume of free fluid in the abdomen and pelvis is presumably related to dial ysis. No evidence of obstruction. No pneumatosis or pneumoperitoneum. Diffuse fatty infiltration o f the colon may indicate chronic/remote colitis. The sigmoid colon and rectum are fluid-filled. Uterus and adnexa: 2 left adnexal cyst, measuring 3.2 x 2.7 and 2.9 x 2.3 cm. No definite evidence o f associated complication. IUD in place. Bones and soft tissues: No acute abnormality or suspicious lesion. IMPRESSION: 1. Bilateral lower lobe tree-in-bud nodularity, increased on the right compared to 08/30/2018. This is likely infectious/inflammatory. 2. Fluid-filled sigmoid colon and rectum could indicate infectious or inflammatory colitis/diarrheal illness. 3. Left adnexal cyst measuring 3.2 and 2.9 cm, possibly functional. No definite evidence of associa tenisha complication. 4. Markedly atrophic [place] kidneys with peritoneal dialysis catheter in place. A small volume of f ree fluid in the pelvis is likely related to dialysis. Report Dictated By: Jeff Cobos MD at 09/14/2018 5:38 AM Report E-Signed By: Jeff Cobos MD at 09/14/2018 5:54 AM WSN:[id number]
--- NOTE | 2018-09-14 06:43 | RADIOLOGY IMAGING REPORT ---
FACILITY: [facility] PATIENT NAME: Celina Ramos : 1990 MR: [id number] V: [id number] EXAM DATE: ORDERING PHYSICIAN: JUNIOR BAE TECHNOLOGIST: Location: [facility] [place] Patient: Celina Ramos : 1990 Visit/Account:[id number] Date of Sevice: 09/14/2018 EXAMINATION: TRANSVAGINAL PELVIC ULTRASOUND WITH DOPPLER DATE: 09/14/2018 5:24 AM INDICATION: Pelvic pain. TECHNIQUE: Transvaginal kee scale, color, and pulsed Doppler ultrasound examination of the pelvis wa s performed. COMPARISON: Same-day CT abdomen and pelvis, pelvic ultrasound 08/11/2018. FINDINGS: The uterus is measures 6.2 x 3.3 x 3.9 cm. There is no definite focal lesion in the myometrium. The e ndometrial stripe measures 12 mm in AP thickness, which is within normal limits. IUD appears appropr iately positioned. The right ovary measures 3.1 x 4.0 x 1.7 cm and contains physiologic follicles and has venous and art erial waveforms on pulsed Doppler. The left ovary measures 4.9 x 3.7 x 4.3 cm and has venous and arterial waveforms on pulsed Doppler. It contains 2 cysts. A simple cyst measuring 2.8 x 2.3 x 3.2 cm, and a largely simple cyst containin g a possible small daughter cyst versus adjacent follicle measuring 2.9 x 1.7 x 2.6 cm. There is a small to moderate volume of free fluid in the pelvic cavity. IMPRESSION: 1. 2 left ovarian cysts, one of which is simple and one of which is largely simple and contains a sm all daughter cyst or adjacent follicle. No evidence of torsion. These are new since 08/11/2018 and l ikely functional. 2. IUD appears appropriately positioned. 3. [id number] volume of free fluid in the pelvis likely related to peritoneal dialysis. Report Dictated By: Jeff Cobos MD at 09/14/2018 6:30 AM Report E-Signed By: Jeff Cobos MD at 09/14/2018 6:39 AM WSN:[id number]
[2018-09-14] MEDS ORDERED: CEFEPIME HCL 1 GM VIAL IVP ONE (07:45)
[2018-09-14 09:00] VITALS: BP 121/90
== END 2018-09-14 09:30 | disposition short-term general hospital (02) ==
LOC: ER 04:29
DX: R10.30 Lower abdominal pain, unspecified (principal); J18.1 Lobar pneumonia, unspecified organism; K52.9 Noninfective gastroenteritis and colitis, unspecified; Z99.2 Dependence on renal dialysis
CPT/HCPCS: 71250; 74176; 76830; 82150; 83690; 84703; 85025; 96374; 96375; 96376; 99284; J0692; J1170; J1200; J2060; J2405; J7030; 82040; 82247; 82310; 82374; 82435; 82565; 82947; 84075; 84132; 84155; 84295; 84450; 84460; 84520; Q9967

== ENCOUNTER → 2018-09-14 | Outpatient (CLI) | payer MEDICARE, MEDICAID ==
[~2018-09-14] MED LIST changes: +HYOS0.1225 PO; +LIDO15SO2 PO
== END ==
LOC: AMB 09:03
PROVIDERS: ATTEND Nurse Practitioner
DX: J18.9 Pneumonia, unspecified organism (principal); M30.0 Polyarteritis nodosa; Z99.2 Dependence on renal dialysis
CPT/HCPCS: A0425; A0426

== ENCOUNTER 2018-09-21 23:04 | Emergency (ER) | payer MEDICARE, MEDICAID ==
--- NOTE | 2018-09-21 23:37 | ER Report ---
History and Physical Time Seen By MD: 23:35 Hx. of Stated Complaint: was sent to [facility] last week for pneumonia, stil has cough and abdominal pain HPI/ROS CHIEF COMPLAINT: Cough, abdominal pain, fevers, nausea with vomiting HISTORY OF PRESENT ILLNESS: This is a 28-year-old female. She was at [facility] last week and diagnosed with peritonitis. Her old peritoneal dialysis catheter was removed. Cultures grew out staph and she is currently on vancomycin. She states that while she was at [facility] she was feeling much much better. Her abdominal pain was improved. She was eating and drinking without problems. The cough she has been experiencing for a long time had improved. Upon returning home on , she started to have some increasing symptoms of pain and some nausea in the evening. On Sunday she was feeling like she was having some fevers, at dialysis her temperature was 99.5. The pain was worsening, her cough was worsening again, and having more nausea. On Sunday during the morning symptoms worsen until midday Sunday she started having vomiting with anything she tried to eat or drink. The cough also worsened and the pain was much worse. She was trying to avoid coming in the hospital and finally Sunday evening felt the pain was so bad and being unable to keep anything down came into the ER. She did measure a temperature of 100.5 at home on Sunday. Her biggest fear is that she may have a bacteria resistant to vancomycin since this is the third round of vancomycin she has had in the last 6 months. She also was wondering if the antibiotic that we had started her on initially during the last transfer, the cefepime, was working and then when they transitioned to vancomycin, things worsen. She also has a history of Pseudomonas and her lungs found by bronchoscopy in the past and wonders if this could be going on now as well. No chest pain at this time. Still does not make urine, anuric renal failure. Has only had one small watery bowel movements since returning home on . Allergies: Coded Allergies: fentanyl (Unverified Allergy, Severe, SEIZURES, 09/14/18) vancomycin (Unverified Allergy, Unknown, ORAL SWELLING, 09/14/18) levofloxacin (Verified Adverse Reaction, Intermediate, Severe arthralgia, 09/14/18) meperidine (Unverified Adverse Reaction, Unknown, HALLUCINATIONS, 09/14/18) morphine (Unverified Adverse Reaction, Unknown, ITCHING, 09/14/18) Home Meds Active Scripts Hyoscyamine Sulfate (HYOSCYAMINE SULFATE) 0.125 Mg Tablet, 0.125 MG PO BID, #10 TAB 0 Refills Prov:JUNIOR BAE MD 08/31/18 Reported Medications Lidocaine HCl VISCOUS 2% (Lidocaine Viscous) 2 % Solution, 5 ML PO TID PRN for pain 09/02/18 Promethazine Hcl (PROMETHAZINE HCL) 25 Mg Tablet, 25 MG PO Q8H PRN for PRN, TAB 07/05/18 Albuterol Sulfate 0.083% (ALBUTEROL SULFATE 0.083%) 2.5 Mg/3 Ml Vial.neb, 2.5 MG INH BID, INH 07/05/18 Topiramate (TOPAMAX) 100 Mg Tablet, 150 MG PO BID 12/28/17 Ondansetron Hcl (ZOFRAN) 4 Mg Tablet, 2 TAB PO PRN, TAB 12/28/17 Melatonin (MELATONIN) 5 Mg Tablet, 1 TAB PO QHS 12/28/17 Sevelamer Carbonate (RENVELA) 800 Mg Tablet, 1 TAB PO WITH MEALS 12/28/17 Omeprazole (OMEPRAZOLE) 40 Mg Capsule.dr, 1 CAP PO BID, CAP 12/28/17 Azathioprine (IMURAN) 50 Mg Tablet, 2 TAB PO QDAY 12/28/17 Reviewed Nurses Notes: Yes Hx Smoking: No Smoking Status: Never Smoker Constitutional Vital Sign - Last 24 Hours 09/21/18 09/21/18 09/21/18 09/21/18 23:12 23:15 23:24 23:30 Temp 98.8 Pulse 85 Resp 16 B/P (MAP) 123/87 (99) 114/84 (94) 114/84 111/82 (92) Pulse Ox 90 O2 Delivery Room Air 09/21/18 09/22/18 09/22/18 09/22/18 23:34 00:00 00:30 00:34 Pulse 95 85 B/P (MAP) 126/103 (111) 123/84 (97) Pulse Ox 96 88 09/22/18 09/22/18 09/22/18 09/22/18 00:39 01:00 01:09 01:30 Pulse 85 83 B/P (MAP) 114/89 (97) 118/81 (93) Pulse Ox 89 09/22/18 09/22/18 09/22/18 09/22/18 01:39 02:00 02:05 02:30 Pulse 76 76 B/P (MAP) 98/75 (83) 106/72 (83) Pulse Ox 85 88 09/22/18 09/22/18 09/22/18 09/22/18 02:35 03:00 03:05 03:30 Pulse 72 74 B/P (MAP) 110/78 (89) 109/80 (90) Pulse Ox 89 82 09/22/18 09/22/18 03:35 03:39 Pulse 71 Pulse Ox 88 88 Physical Exam General Appearance: The patient is alert. Acute distress because of pain and nausea. Eyes: Pupils are equal, round. No pallor, injection or icterus. ENT: Mucous membranes are still moist. And has normal-appearing oral mucosa. Neck: Supple and non tender. Respiratory: Lungs have coarse rhonchi and some polyphonic wheezes on expiration. There are no retractions or accessory muscle use. Wet sounding productive cough tonight. Cardiovascular: Regular rate and rhythm. No murmurs, gallops or rubs. Normal capillary refill. No edema. Gastrointestinal: Abdomen has diffuse tenderness, mild distention. Abdominal incisions look good without erythema, slight serous drainage of the smaller puncture area on the right. No drainage from the incision on the left. Significant guarding, no real rebound. Normal active bowel sounds. Neurological: Alert and oriented x3. No focal neurologic deficits Skin: Warm and dry. No rashes. Incisions as above. DIFFERENTIAL DIAGNOSIS: After history and physical exam, differential diagnosis was considered for patient with clinically worsening symptoms of fevers, worsening cough, worsening abdominal pain, and unable to keep oral food or liquid down because of ongoing nausea and vomiting. Currently being treated with vancomycin for peritonitis. We will check CT scan again tonight as well as labs. Vital signs remained stable tonight and currently afebrile. Medical Decision Making Data Points Result Diagram: 09/22/18 0029 09/22/18 0029 Laboratory Hematology Test 09/22/18 00:29 Red Blood Count 3.43 M/uL (4.17-5.56) Mean Corpuscular Volume 91.3 fL (80.0-96.0) Mean Corpuscular Hemoglobin 30.3 pg (26.0-33.0) Mean Corpuscular Hemoglobin Concent 33.2 g/dL (32.0-36.0) Red Cell Distribution Width 16.4 % (11.5-14.5) Mean Platelet Volume 8.2 fL (7.2-11.1) Neutrophils (%) (Auto) % (39.4-72.5) Lymphocytes (%) (Auto) % (17.6-49.6) Monocytes (%) (Auto) % (4.1-12.4) Eosinophils (%) (Auto) % (0.4-6.7) Basophils (%) (Auto) % (0.3-1.4) Nucleated RBC Relative Count (auto) /100WBC Neutrophils # (Auto) K/uL (2.0-7.4) Lymphocytes # (Auto) K/uL (1.3-3.6) Monocytes # (Auto) K/uL (0.3-1.0) Eosinophils # (Auto) K/uL (0.0-0.5) Basophils # (Auto) K/uL (0.0-0.1) Nucleated RBC Absolute Count (auto) K/uL Neutrophils % (Manual) 42 % (39.4-72.5) Band Neutrophils % 25 % Lymphocytes % (Manual) 13 % (17.6-49.6) Monocytes % (Manual) 16 % (4.1-12.4) Eosinophils % (Manual) 1 % (0.4-6.7) Basophils % (Manual) 1 % (0.3-1.4) Metamyelocytes % 2 % Peripheral Blood Smear Yes Y/N Sodium Level 137 mmol/L (137-145) Potassium Level 4.1 mmol/L (3.5-5.0) Chloride Level 99 mmol/L (98-107) Carbon Dioxide Level 31 mmol/L (22-31) Blood Urea Nitrogen 14 mg/dl (7-18) Creatinine 6.10 mg/dl (0.52-1.04) Glomerular Filtration Rate Calc 8.2 Random Glucose 98 mg/dl (75-110) Calcium Level 9.0 mg/dl (8.4-10.2) Total Bilirubin 0.5 mg/dl (0.2-1.3) Aspartate Amino Transf (AST/SGOT) 13 U/L (0-35) Alanine Aminotransferase (ALT/SGPT) 15 U/L (0-56) Alkaline Phosphatase 124 U/L (0-126) Total Protein 6.2 g/dl (6.3-8.2) Albumin 3.1 g/dl (3.5-5.0) Chemistry Test 09/22/18 00:29 White Blood Count 3.1 k/uL (4.5-11.0) Red Blood Count 3.43 M/uL (4.17-5.56) Hemoglobin 10.4 g/dL (12.0-16.0) Hematocrit 31.3 % (34.0-47.0) Mean Corpuscular Volume 91.3 fL (80.0-96.0) Mean Corpuscular Hemoglobin 30.3 pg (26.0-33.0) Mean Corpuscular Hemoglobin Concent 33.2 g/dL (32.0-36.0) Red Cell Distribution Width 16.4 % (11.5-14.5) Platelet Count 480 K/uL (150-450) Mean Platelet Volume 8.2 fL (7.2-11.1) Neutrophils (%) (Auto) % (39.4-72.5) Lymphocytes (%) (Auto) % (17.6-49.6) Monocytes (%) (Auto) % (4.1-12.4) Eosinophils (%) (Auto) % (0.4-6.7) Basophils (%) (Auto) % (0.3-1.4) Nucleated RBC Relative Count (auto) /100WBC Neutrophils # (Auto) K/uL (2.0-7.4) Lymphocytes # (Auto) K/uL (1.3-3.6) Monocytes # (Auto) K/uL (0.3-1.0) Eosinophils # (Auto) K/uL (0.0-0.5) Basophils # (Auto) K/uL (0.0-0.1) Nucleated RBC Absolute Count (auto) K/uL Neutrophils % (Manual) 42 % (39.4-72.5) Band Neutrophils % 25 % Lymphocytes % (Manual) 13 % (17.6-49.6) Monocytes % (Manual) 16 % (4.1-12.4) Eosinophils % (Manual) 1 % (0.4-6.7) Basophils % (Manual) 1 % (0.3-1.4) Metamyelocytes % 2 % Peripheral Blood Smear Yes Y/N Glomerular Filtration Rate Calc 8.2 Calcium Level 9.0 mg/dl (8.4-10.2) Total Bilirubin 0.5 mg/dl (0.2-1.3) Aspartate Amino Transf (AST/SGOT) 13 U/L (0-35) Alanine Aminotransferase (ALT/SGPT) 15 U/L (0-56) Alkaline Phosphatase 124 U/L (0-126) Total Protein 6.2 g/dl (6.3-8.2) Albumin 3.1 g/dl (3.5-5.0) EKG/Imaging Imaging EXAMINATION: CT Thorax W/O Contrast CT Abdomen W/O Contrast CT Pelvis W/O Contrast 09/21/2018 11:55 PM HISTORY: cough, fever, abdominal pain TECHNIQUE: Spiral scan was obtained through the chest, abdomen and pelvis without intravenous contrast. One of the following dose optimization techniques was utilized in the performance of this exam: Automated exposure control; adjustment of the mA and/or kV according to the patient's size; or use of an iterative reconstruction technique. Specific details can be referenced in the facility's radiology CT exam operational policy. COMPARISON STUDIES: CT chest 09/14/2018. Pelvic ultrasound 09/14/2018. CT abdomen and pelvis 08/30/2018. FINDINGS: CHEST: Lungs / pleura: Tree-in-bud densities in the right base. There are tree-in-bud densities in the left base with progressing consolidation which is mostly plat elike Mediastinum / driss: negative Heart / pericardium: Blood is again noted to be hypodense to myocardium. Vessels: Port catheter enters on the left with the tip at the cavoatrial junction. Musculoskeletal / Body wall: negative Lymph node assessment: Nonspecific small mediastinal lymph nodes. Lower neck: negative ABDOMEN AND PELVIS: Liver / biliary: negative Pancreas: negative Spleen: negative Adrenal glands: negative Kidneys / retroperitoneum: Both [place] kidneys are markedly atrophic. Pelvic structures: IUD in the uterus. Adjacent cysts in the left ovary are again shown. Bowel / peritoneum / mesenteries: Mild amount of ascites. Peritoneal dialysis catheter is been removed. No acute intrinsic bowel finding. Vessels: negative Musculoskeletal / Body wall: Residual changes where the peritoneal dialysis catheter was removed. No acute bony finding. Lymph node assessment: negative IMPRESSION: 1. Interval removal of the peritoneal dialysis catheter. Mild ascites remains. 2. Adjacent left ovarian cyst which may be functional. 3. Tree-in-bud infiltrates in both bases. Progressing consolidation in the left base is fairly platelike and may simply be atelectasis rather than infectious consolidation. 4. Patient is anemic. Report Dictated By: Shaun Muniz MD at 09/22/2018 1:07 AM ED Course/Re-evaluation Clinical Indication for ER IV: IV Access ED Course IV obtained blood work obtained. Patient given Dilaudid, Ativan, Benadryl for pain as well as some Zofran for nausea. Repeated the Dilaudid several times during her ER visit tonight with minimal improvement in her pain. CT scan obtained as noted, overall this appears improved. Still with changes in the lung bases is noted. Slight ascites. The colon looks better than it did last time as well. The peritoneal dialysis catheter now is removed. No real sign of abscess or bowel issue at this time. Because of her worsening symptoms, we discussed options and at this point where she is unable to eat or drink, having fevers, having worsening abdominal pain and cough, I elected to call and speak with hospitalist at [facility]. I talked to Dr. Putnam, hospitalist, who reviewed the patient's records from recent hospitalization. Current cultures do show staph epidermidis that is sensitive to vancomycin. With her history of the Pseudomonas in the lungs found by bronchoscopy in the past, my question would be whether she needs an infectious disease and pulmonology consult to look further at this. This may be supported by the fact that she was improving initially during her hospitalization and she had received 3 days of cefepime prior to switching to the vancomycin, and was the cefepime helping and now without that she is worsening. Objective data right now does not show any abnormalities, specifically vital signs are stable, lab results are normal other than her creatinine, and CT scan looks better. But clinically she is worsening. Because of this, Dr. Putnam accepted her to be transferred to [facility] for further evaluation and management. Decision to Disposition Date: September 22, 2018 Decision to Disposition Time: 04:09 Depart Departure Latest Vital Signs Vital Signs Date Time Temp Pulse Resp B/P (MAP) Pulse Ox O2 Delivery O2 Flow Rate FiO2 5/12/19 03:39 88 09/22/18 03:35 71 09/22/18 03:30 109/80 (90) 09/21/18 23:24 98.8 16 Room Air Impression: Primary Impression: Intractable abdominal pain Additional Impressions: Nausea and vomiting Fever Chronic cough Immunosuppression Condition: Condition Unchanged Disposition: Admitted from ER Referrals: SANDY ART MD (PCP) Problem Qualifiers Additional Impressions: Nausea and vomiting Vomiting type: unspecified Vomiting Intractability: non-intractable Qualified Codes: R11.2 - Nausea with vomiting, unspecified Fever Fever type: unspecified Qualified Codes: R50.9 - Fever, unspecified JUNIOR BAE MD September 21, 2018 23:37
[2018-09-21] MEDS ORDERED: HYDROMORPHONE HCL 1 MG/ML SYRINGE IVP ONE (23:55)
[2018-09-21] MEDS ORDERED: ONDANSETRON 4 MG/2 ML VIAL IVP ONE (23:55)
[2018-09-21] MEDS ORDERED: diphenhydrAMINE 50 MG/ML VIAL IVP ONE (23:55)
[2018-09-21] MEDS ORDERED: LORazepam 2 MG/ML VIAL IVP ONE (23:55)
[2018-09-22 00:46] LABS: PLATELET COUNT, AUTOMATED 480 K/uL (150-450)
[2018-09-22] MEDS ORDERED: HYDROMORPHONE HCL 1 MG/ML SYRINGE IVP ONE ×4 (01:15→04:50)
--- NOTE | 2018-09-22 01:25 | RADIOLOGY IMAGING REPORT ---
[place] [facility] [place] NAME: Celina Ramos : 1990 MR: [id number] V: [id number] EXAM DATE: ORDERING PHYSICIAN: JUNIOR BAE TECHNOLOGIST: Location: [facility] Patient: Celina Ramos : 1990 Visit/Account:[id number] Date of Sevice: 09/21/2018 EXAMINATION: CT Thorax W/O Contrast CT Abdomen W/O Contrast CT Pelvis W/O Contrast 09/21/2018 11:55 PM HISTORY: cough, fever, abdominal pain TECHNIQUE: Spiral scan was obtained through the chest, abdomen and pelvis without intravenous contra st. One of the following dose optimization techniques was utilized in the performance of this exam: Autom ated exposure control; adjustment of the mA and/or kV according to the patient's size; or use of an i terative reconstruction technique. Specific details can be referenced in the facility's radiology C T exam operational policy. COMPARISON STUDIES: CT chest 09/14/2018. Pelvic ultrasound 09/14/2018. CT abdomen and pelvis 08/30/2018. FINDINGS: CHEST: Lungs / pleura: Tree-in-bud densities in the right base. There are tree-in-bud densities in the left base with progressing consolidation which is mostly platelike Mediastinum / driss: negative Heart / pericardium: Blood is again noted to be hypodense to myocardium. Vessels: Port catheter enters on the left with the tip at the cavoatrial junction. Musculoskeletal / Body wall: negative Lymph node assessment: Nonspecific small mediastinal lymph nodes. Lower neck: negative ABDOMEN AND PELVIS: Liver / biliary: negative Pancreas: negative Spleen: negative Adrenal glands: negative Kidneys / retroperitoneum: Both [place] kidneys are markedly atrophic. Pelvic structures: IUD in the uterus. Adjacent cysts in the left ovary are again shown. Bowel / peritoneum / mesenteries: Mild amount of ascites. Peritoneal dialysis catheter is been remove d. No acute intrinsic bowel finding. Vessels: negative Musculoskeletal / Body wall: Residual changes where the peritoneal dialysis catheter was removed. No acute bony finding. Lymph node assessment: negative IMPRESSION: 1. Interval removal of the peritoneal dialysis catheter. Mild ascites remains. 2. Adjacent left ovarian cyst which may be functional. 3. Tree-in-bud infiltrates in both bases. Progressing consolidation in the left base is fairly platel kenn and may simply be atelectasis rather than infectious consolidation. 4. Patient is anemic. Report Dictated By: Shaun Muniz MD at 09/22/2018 1:07 AM Report E-Signed By: Shaun Muniz MD at 09/22/2018 1:21 AM WSN:[email or web address]
[2018-09-22 03:30] VITALS: BP 109/80
[2018-09-22] MEDS ORDERED: diphenhydrAMINE 50 MG/ML VIAL IVP ONE (04:20)
[2018-09-22] MEDS ORDERED: LORazepam 2 MG/ML VIAL IVP ONE (04:50)
== END 2018-09-22 05:10 | disposition short-term general hospital (02) ==
LOC: ER 23:15
DX: R10.9 Unspecified abdominal pain (principal); R11.2 Nausea with vomiting, unspecified; R50.9 Fever, unspecified; R05 Cough; R18.8 Other ascites
CPT/HCPCS: 71250; 74176; 85025; 96374; 96375; 96376; 99285; J1170; J1200; J2060; J2405; 82040; 82247; 82310; 82374; 82435; 82565; 82947; 84075; 84132; 84155; 84295; 84450; 84460; 84520

== ENCOUNTER → 2018-09-22 | Outpatient (CLI) | payer MEDICARE, MEDICAID | LOC: AMB 04:56 | PROVIDERS: ATTEND Nurse Practitioner | DX: R10.31 Right lower quadrant pain (principal); R10.32 Left lower quadrant pain; R10.33 Periumbilical pain | CPT/HCPCS: A0425; A0426 ==

== ENCOUNTER 2018-10-01 15:38 | Outpatient (RCR) | payer MEDICARE, MEDICAID ==
[2018-10-02] MEDS ORDERED: methylPREDNIS SUCC 125 MG/2ML IVP PRN (07:15)
[2018-10-02] MEDS ORDERED: DEXTROSE 5%(*) 100 ML BAG 100 ML IVPB PRN (07:15)
[2018-10-02] MEDS ORDERED: NS(*) 0.9% 100 ML BAG 100 ML IVPB PRN (07:15)
[2018-10-02] MEDS ORDERED: ACETAMINOPHEN 325 MG TAB PO PRN (07:15)
[2018-10-02] MEDS ORDERED: ONDANSETRON 4 MG ODT TABDP SL PRN (07:15)
[2018-10-02] MEDS ORDERED: diphenhydrAMINE 50 MG/ML VIAL IVP PRN (07:15)
[2018-10-02] MEDS ORDERED: LIDOCAINE/SOD BICARB 8.4% SYR ID PRN (07:15)
== END 2018-10-03 18:43 | disposition home or self-care (01) ==
LOC: SPU 15:38
PROVIDERS: ATTEND Internal Medicine Rheumatology
DX: Z02.9 Encounter for administrative examinations, unspecified (principal)

== ENCOUNTER → 2018-10-10 | Outpatient (CLI) | payer MEDICARE, MEDICAID ==
[2018-10-10 12:12] LABS: PLATELET COUNT, AUTOMATED 315 K/uL (150-450)
--- NOTE | 2018-10-10 12:36 | RADIOLOGY IMAGING REPORT ---
FACILITY: [facility] PATIENT NAME: Celina Ramos : 1990 MR: [id number] V: [id number] EXAM DATE: ORDERING PHYSICIAN: SANDY ART TECHNOLOGIST: Location: [facility] - [place] Patient: Celina Ramos : 1990 Visit/Account:[id number] Date of Sevice: 10/10/2018 Technique: CHEST PA LAT HISTORY: Wet cough with abnormal lung sounds. Comparison studies: 06/28/2018, 09/14/2018 FINDINGS: Noted is a tunneled left-sided hemodialysis catheter with the tip overlying the right atriu m. The lungs are clear. No pleural effusion. The cardiac silhouette is unremarkable. IMPRESSION: 1. No acute cardiopulmonary process. Report Dictated By: George Rivers DO at 10/10/2018 12:29 PM Report E-Signed By: George Rivers DO at 10/10/2018 12:32 PM WSN:[id number]
== END ==
LOC: LAB 11:52
PROVIDERS: ATTEND Emergency Medicine
DX: R05 Cough (principal)
CPT/HCPCS: 36415; 71046; 85025; 86140

== ENCOUNTER → 2018-10-16 | Outpatient (REF) | payer MEDICARE, MEDICAID ==
[~2018-10-16] MED LIST changes: +MELA5TAB3 PO; -MELA5TAB6 PO
== END ==
LOC: ZZSENDIN 17:15
PROVIDERS: ATTEND Obstetrics & Gynecology
DX: Z09 Encounter for follow-up examination after completed treatment for conditions other than malignant neoplasm (principal); R23.2 Flushing; Z98.890 Other specified postprocedural states
CPT/HCPCS: 82670; 83001; 84443

== ENCOUNTER → 2018-10-30 | Outpatient (CLI) | payer MEDICARE, MEDICAID | LOC: LAB 09:07 | PROVIDERS: ATTEND Emergency Medicine | DX: R79.82 Elevated C-reactive protein (CRP) (principal) | CPT/HCPCS: 86140 ==

== ENCOUNTER → 2018-11-13 | Outpatient (REF) | payer MEDICARE, MEDICAID ==
[~2018-11-13] MED LIST changes: +RIT100I IV
== END ==
LOC: ZZSENDIN 11:46
PROVIDERS: ATTEND Internal Medicine Rheumatology
DX: D72.810 Lymphocytopenia (principal); M31.7 Microscopic polyangiitis
CPT/HCPCS: 82784; 88184; 88185

== ENCOUNTER → 2018-11-15 | Outpatient (CLI) | payer MEDICARE, MEDICAID | LOC: LAB 15:16 | PROVIDERS: ATTEND Emergency Medicine | DX: Z02.0 Encounter for examination for admission to educational institution (principal) | CPT/HCPCS: 86735; 86762 ==

== ENCOUNTER → 2018-11-19 | Outpatient (CLI) | payer MEDICARE, MEDICAID ==
[~2018-11-19] MED LIST changes: +BARIUM SULFATE 176 GM BTL PO ONE; +BARIUM SULFATE 340 GM POWD ONE
--- NOTE | 2018-11-19 10:14 | RADIOLOGY IMAGING REPORT ---
[place] [facility] [place] NAME: Celina Ramos : 1990 MR: [id number] V: [id number] EXAM DATE: ORDERING PHYSICIAN: EVONNE MOORE TECHNOLOGIST: [place] [facility] [place] : 1990 Visit/Account:[id number] Date of Sevice: 11/19/2018 Exam type: ESOPHAGRAM History: GERD Comparison: Two-view chest October 10, 2018. Findings: There is mild chronic scarring in the lung bases that appears similar to the prior study. Double contrast esophagram was performed with thick and thin barium and air contrast. There was very mild gastroesophageal reflux observed. No evidence of esophageal narrowing or mucosal erosion or in traluminal mass. The dose area product is 197.26 micro-Larry per meter squared IMPRESSION: 1. Very mild amount of gastric esophageal reflux although no evidence of mucosal erosion, esophageal narrowing or intraluminal mass Report Dictated By: Trista Jon MD at 11/19/2018 9:43 AM Report E-Signed By: Trista Jon MD at 11/19/2018 10:06 AM WSN:[id number]
== END ==
LOC: LAB 10-30 09:20 → RAD 00:59
PROVIDERS: ATTEND Otolaryngology
DX: K21.9 Gastro-esophageal reflux disease without esophagitis (principal)
CPT/HCPCS: 36415; 74220; 86765